=== PATIENT | female | born 1955 | race Caucasian/White ===

== ENCOUNTER → 2018-08-04 | Outpatient (CLI) | payer MEDICARE ==
[2018-08-04 09:30] LABS: Basophils # (auto) 0 uL; Basophils % (auto) 0.5 % (0.0-2.0); Eosinophils # (auto) 0.1 uL; Eosinophils % (auto) 1.9 % (0.0-7.0); Hematocrit 43.9 % (36.0-46.0); Hemoglobin 14.5 g/dL (12.2-16.2); Lymphocytes # (auto) 1.7 uL; Mean Corpuscular Hemoglobin 28.6 pg (28.0-32.0); Mean Corpuscular Hgb Conc. 33.1 g/dL (32.0-36.0); Mean Corpuscular Volume 86.5 fL (80.0-100.0); Monocytes # (auto) 0.5 uL; Neutrophils # (auto) 4.4 uL; Neutrophils % (auto) 64.6 % (37.0-80.0); Platelet Count (auto) 226 10^3/uL (140-450); Red Blood Cells 5.08 10^6/uL (4.0-5.20); Red Cell Distribution Width 13.7 % (11.8-14.3); White Blood Cell 6.8 10^3/uL (4.4-10.8)
[2018-08-04 09:36] LABS: INR 0.82 (0.9-1.15); Partial Thromboplastin Time 29.4 sec (23.78-33.04); Prothrombin Time 8.9 sec (9.27-12.13); Urine Bacteria NONE SEEN /hpf (None Seen); Urine Blood Negative /uL (Negative); Urine Specific Gravity 1.003 (1.001-1.035); Urine WBC <1 /hpf (0 - 5)
[2018-08-04 09:45] LABS: Albumin 3.8 g/dL (3.4-5.0); Calcium 9.3 mg/dL (8.5-10.1); Potassium 4.6 mmol/L (3.5-5.1)
[2018-08-04 09:49] LABS: Amphetamine Screen, Urine NEGATIVE (NEGATIVE); Barbiturate Scree,Urine NEGATIVE (NEGATIVE); Benzodiazephine Screen, Urine NEGATIVE (NEGATIVE); Cannabinoid Screen, Urine NEGATIVE (NEGATIVE); Cocaine Screen, Urine NEGATIVE (NEGATIVE)
[2018-08-04 09:51] LABS: BUN/Creatinine Ratio 9.6; Bilirubin, Total 0.5 mg/dL (0.2-1.0); Total Protein 7.5 g/dL (6.4-8.2)
[2018-08-04 09:52] LABS: Alcohol, Urine < 3.0 mg/dL (0-5); Opiate Scree,Urine NEGATIVE (NEGATIVE); Phencyclidine Screen, Urine NEGATIVE (NEGATIVE)
[2018-08-04 09:53] LABS: Free T4 (Free Thyroxine) 1.23 ng/dL (0.89-1.76)
[2018-08-04 09:54] LABS: Folate (Folic Acid) > 24.00 ng/mL (5.38-24)
== END | disposition home or self-care (01) ==
LOC: LAB 08:37
PROVIDERS: ATTEND Internal Medicine
DX: R60.0 Localized edema (principal); F31.10 Bipolar disorder, current episode manic without psychotic features, unspecified; J43.9 Emphysema, unspecified; R73.9 Hyperglycemia, unspecified; R79.1 Abnormal coagulation profile; E55.9 Vitamin D deficiency, unspecified; E78.5 Hyperlipidemia, unspecified; F11.20 Opioid dependence, uncomplicated
CPT/HCPCS: 36415; 80053; 80061; 80307; 81001; 82306; 82607; 82746; 83036; 83615; 84439; 84443; 85025; 85610; 85730

== ENCOUNTER → 2018-08-06 | Outpatient (CLI) | payer MEDICARE ==
[2018-08-06 10:37] LABS: Basophils # (auto) 0 uL; Basophils % (auto) 0.5 % (0.0-2.0); Eosinophils # (auto) 0.1 uL; Eosinophils % (auto) 1.4 % (0.0-7.0); Hematocrit 42.7 % (36.0-46.0); Hemoglobin 14.4 g/dL (12.2-16.2); Lymphocytes # (auto) 1.5 uL; Lymphocytes % (auto) 20.6 % (10.0-50.0); Mean Corpuscular Hemoglobin 29.2 pg (28.0-32.0); Mean Corpuscular Hgb Conc. 33.8 g/dL (32.0-36.0); Mean Corpuscular Volume 86.3 fL (80.0-100.0); Monocytes # (auto) 0.6 uL; Monocytes % (auto) 8.7 % (0.0-12.0); Neutrophils # (auto) 5.1 uL; Neutrophils % (auto) 68.8 % (37.0-80.0); Nucleated Red Blood Cells % 0.1 %; Platelet Count (auto) 214 10^3/uL (140-450); Red Blood Cells 4.95 10^6/uL (4.0-5.20); White Blood Cell 7.4 10^3/uL (4.4-10.8)
[2018-08-06 13:45] LABS: Albumin 3.9 g/dL (3.4-5.0); BUN/Creatinine Ratio 7.3; Bilirubin, Total 0.4 mg/dL (0.2-1.0); Calcium 9.2 mg/dL (8.5-10.1); Total Protein 7.7 g/dL (6.4-8.2)
[2018-08-06 14:19] LABS: Potassium 4.1 mmol/L (3.5-5.1)
== END | disposition home or self-care (01) ==
LOC: LAB 10:09
PROVIDERS: ATTEND Internal Medicine
DX: C50.112 Malignant neoplasm of central portion of left female breast (principal); Z85.41 Personal history of malignant neoplasm of cervix uteri
CPT/HCPCS: 36415; 80053; 83615; 85025; 86300

== ENCOUNTER → 2018-08-11 | Outpatient (CLI) | payer MEDICARE | END | disposition home or self-care (01) | LOC: LAB 10:25 | PROVIDERS: ATTEND Internal Medicine | DX: C50.112 Malignant neoplasm of central portion of left female breast (principal) | CPT/HCPCS: 36415; 82565; 84520 ==

== ENCOUNTER → 2018-08-13 | Outpatient (CLI) | payer MEDICARE | END | disposition home or self-care (01) | LOC: US 09:22 | PROVIDERS: ATTEND Internal Medicine | DX: C50.312 Malignant neoplasm of lower-inner quadrant of left female breast (principal); Z17.0 Estrogen receptor positive status [ER+]; Z98.890 Other specified postprocedural states | CPT/HCPCS: 10022; 19083; 76642; 76942; 88341 ==

== ENCOUNTER → 2018-08-19 | Outpatient (CLI) | payer MEDICARE, MEDICAID | END | disposition home or self-care (01) | LOC: XYW 10:13 | PROVIDERS: ATTEND Internal Medicine | DX: I34.0 Nonrheumatic mitral (valve) insufficiency (principal); N63.20 Unspecified lump in the left breast, unspecified quadrant | CPT/HCPCS: 93306 ==

== ENCOUNTER 2018-09-23 07:10 | Inpatient (IN) | payer MEDICARE, MEDICAID ==
[2018-09-21 11:08] LABS: Basophils # (auto) 0.1 uL; Basophils % (auto) 0.9 % (0.0-2.0); Eosinophils # (auto) 0.1 uL; Eosinophils % (auto) 2.2 % (0.0-7.0); Hemoglobin 14.6 g/dL (12.2-16.2); Lymphocytes # (auto) 1.8 uL; Lymphocytes % (auto) 32.2 % (10.0-50.0); Mean Corpuscular Hemoglobin 28.4 pg (28.0-32.0); Mean Corpuscular Hgb Conc. 33.1 g/dL (32.0-36.0); Mean Corpuscular Volume 85.8 fL (80.0-100.0); Monocytes # (auto) 0.5 uL; Monocytes % (auto) 8.3 % (0.0-12.0); Neutrophils # (auto) 3.2 uL; Neutrophils % (auto) 56.4 % (37.0-80.0); Platelet Count (auto) 207 10^3/uL (140-450); Red Blood Cells 5.12 10^6/uL (4.0-5.20); Red Cell Distribution Width 14.1 % (11.8-14.3); White Blood Cell 5.7 10^3/uL (4.4-10.8)
[2018-09-21 11:10] LABS: Urine Bacteria NONE SEEN /hpf (None Seen); Urine Blood Negative /uL (Negative); Urine Specific Gravity 1.005 (1.001-1.035); Urine WBC <1 /hpf (0 - 5)
[2018-09-21 11:20] LABS: INR 0.98 (0.9-1.15); Partial Thromboplastin Time 31.3 sec (23.64-32.05)
[2018-09-21 11:47] LABS: Potassium 3.8 mmol/L (3.5-5.1)
[2018-09-21 11:54] LABS: Albumin 3.9 g/dL (3.4-5.0); Bilirubin, Total 0.5 mg/dL (0.2-1.0); Calcium 8.9 mg/dL (8.5-10.1); Total Protein 7.5 g/dL (6.4-8.2)
[~2018-09-23] VITALS: Ht 160 cm; Wt 87.2 kg
[~2018-09-23 07:10] MED LIST: ALBUAER3 IN; ALEN10TA22 PO; ATOR20TA50 PO; SERT-160 PO
[2018-09-23] MEDS ORDERED: ceFAZolin 1GM/50ML 50 ML IV ONE (08:12)
[2018-09-23] MEDS ORDERED: fentaNYL CITRATE 100 MCG/2 ML VL ONE (09:35)
[2018-09-23] MEDS ORDERED: MIDAZOLAM HCL 1MG/1ML-2 ML VIAL ONE (09:35)
[2018-09-23] MEDS ORDERED: PROPOFOL 10 MG/ML 20 ML IV ONE (09:36)
[2018-09-23] MEDS ORDERED: ePHEDrine SULFATE 50 MG/ML AMP IV PRN (10:15)
[2018-09-23] MEDS ORDERED: KETOROLAC TROMETH 30 MG/ML 1ML VIAL IV ONE (10:15)
[2018-09-23] MEDS ORDERED: METOCLOPRAMIDE HCL 5MG/ml INJ 2ml VIAL IV ONE (10:15)
[2018-09-23] MEDS ORDERED: ONDANSETRON HCL 4 MG/2 ML VIAL IV ONE (10:15)
[2018-09-23] MEDS ORDERED: LABETALOL HCL 5 MG/ML 4ML SYRINGE IV PRN (10:15)
[2018-09-23] MEDS ORDERED: LIDOCAINE HCL 2% TOP JELLY 5ML TOP ONE (11:12)
[2018-09-23] MEDS ORDERED: METOCLOPRAMIDE HCL 5MG/ml INJ 2ml VIAL ONE (11:14)
[2018-09-23] MEDS ORDERED: ONDANSETRON HCL 4 MG/2 ML VIAL ONE (11:14)
[2018-09-23] MEDS ORDERED: KETOROLAC TROMETH 30 MG/ML 1ML VIAL ONE (11:17)
[2018-09-23] MEDS: HYDROmorphone HCL 2 MG/ML VL IV PRN ×4 (11:59→23:23)
[2018-09-23] MEDS ORDERED: MORPHINE SULFATE 4 MG/ML SYR/VIAL IV ONE (12:00)
--- NOTE | 2018-09-23 13:00 | NUR ---
SCD's placed to bilateral lower ext.
[2018-09-23] MEDS ORDERED: NICOTINE 21MG/24 HR TOPICAL PATCH TD ONE (13:45)
[2018-09-23] MEDS ORDERED: HYDROcodone-ACET 5/325MG TAB PO PRN (13:45)
[2018-09-23] MEDS: D5W/SOD CHL 0.45%/KCL 20MEQ 1,000 ML IV SCH ×2 (13:55→21:45)
--- NOTE | 2018-09-23 14:45 | NUR ---
MS admit from OR I[facility] SIMON admitted to MS unit after SBAR received. Patient oriented to Lore Turpin RN primary RN, unit, room, bed, and unit policies regarding patient care and visiting hours. Patient encouraged to call if they need something. All questions and concerns addressed, patient verbalized understanding. Note: Patient alert and oriented. Denies any pain at this time. Dressing to chest in place and 4 IKER Drain bulbs to suction. Bed in locked and lowest position, call light in reach, bed alarm on.
[2018-09-23 16:39] VITALS: BP 93/50
[2018-09-23] MEDS: ceFAZolin 1GM/50ML 50 ML IV SCH ×2 (17:00→21:32)
--- NOTE | 2018-09-23 17:30 | NUR ---
AMBULATION Patient ambulated to restroom with RN standby assist. Patient returned to bed with no distress. Bed in low position, call light in reach.
--- NOTE | 2018-09-23 19:45 | NUR ---
assumed care, pt. awake, alert and oriented, dressing on chest dry and intact, with 4 kaya drains, draining with serous sanguinous out put, no c/o pain, no sob.
[2018-09-23] MEDS: ALBUTEROL SULF 2.5 MG/0.5ML(0.5%) NEB SOLN NEB SCH (19:51)
[2018-09-23] MEDS: IPRATROPIUM BROM 0.5 MG/2.5ML INH SOL NEB SCH (19:51)
[2018-09-23 20:57] VITALS: BP 93/50
[2018-09-23 22:00] VITALS: BP 120/55
[2018-09-23 23:22] VITALS: BP 132/68
[2018-09-24] MEDS: D5W/SOD CHL 0.45%/KCL 20MEQ 1,000 ML IV SCH ×3 (04:52→23:56)
[2018-09-24 05:00] VITALS: BP 123/59
[2018-09-24] MEDS: ceFAZolin 1GM/50ML 50 ML IV SCH ×3 (05:50→21:46)
[2018-09-24] MEDS: HYDROmorphone HCL 2 MG/ML VL IV PRN ×2 (05:51→09:51)
[2018-09-24] MEDS: IPRATROPIUM BROM 0.5 MG/2.5ML INH SOL NEB SCH ×3 (06:27→18:52)
[2018-09-24] MEDS: ALBUTEROL SULF 2.5 MG/0.5ML(0.5%) NEB SOLN NEB SCH ×3 (06:27→18:53)
--- NOTE | 2018-09-24 06:27 | NUR ---
Respiratory note: AT BEDSIDE FOR MED NEB TX. PT TOLERATING TX WELL VIA MASK., BS ARE DIMINISHED T/O, HR 85, POX91% ON 2LPM NC. RT NAME AND PAGER ASSIGNMENT WRITTEN ON PTS ROOM BOARD.
[2018-09-24 07:01] LABS: Basophils # (auto) 0 uL; Basophils % (auto) 0.2 % (0.0-2.0); Eosinophils # (auto) 0 uL; Eosinophils % (auto) 0.2 % (0.0-7.0); Hematocrit 37.3 % (36.0-46.0); Hemoglobin 12.5 g/dL (12.2-16.2); Lymphocytes # (auto) 1.6 uL; Lymphocytes % (auto) 17.2 % (10.0-50.0); Mean Corpuscular Hemoglobin 28.9 pg (28.0-32.0); Mean Corpuscular Hgb Conc. 33.5 g/dL (32.0-36.0); Mean Corpuscular Volume 86.3 fL (80.0-100.0); Monocytes # (auto) 0.6 uL; Monocytes % (auto) 6.9 % (0.0-12.0); Neutrophils # (auto) 6.9 uL; Neutrophils % (auto) 75.5 % (37.0-80.0); Platelet Count (auto) 183 10^3/uL (140-450); Red Blood Cells 4.32 10^6/uL (4.0-5.20); Red Cell Distribution Width 14.2 % (11.8-14.3); White Blood Cell 9.1 10^3/uL (4.4-10.8)
--- NOTE | 2018-09-24 07:25 | NUR ---
SHIFT CHANGE After report received from NOC RN patient rounds completed. Patient resting in bed with eyes closed, respirations even and unlabored, no s/s distress of discomfort. Bed in locked and a lowest position, call light in reach. POC board updated.
[2018-09-24 07:28] LABS: BUN/Creatinine Ratio 15.9; Calcium 8.1 mg/dL (8.5-10.1); Potassium 4.1 mmol/L (3.5-5.1)
[2018-09-24 08:59] VITALS: BP 124/72
[2018-09-24] MEDS: SERTRALINE HCL 50 MG TAB PO SCH (09:50)
--- NOTE | 2018-09-24 09:50 | NUR ---
FAMILY AT BEDSIDE. PATIENT REQUEST IV PAIN MEDICATION. EDUCATION PROVIDED ON MEDICATION ORDERS AND PAIN MANAGEMENT. PATIENT VERBALIZED UNDERSTANDING.
[2018-09-24] MEDS: NICOTINE 21MG/24 HR TOPICAL PATCH TD SCH (09:51)
--- NOTE | 2018-09-24 09:55 | NUR ---
EDUCATION Education provide on use of IKER drains with sister at bedside. Per patient Virginie is her sister that lives at home with her and will assist with patient care after discharge.
--- NOTE | 2018-09-24 11:56 | NUR ---
ROUNDS Patient free of pain. No complaints or s/s distress.
[2018-09-24] MEDS ORDERED: HYDROmorphone HCL 2 MG/ML VL IV PRN (12:45)
[2018-09-24 13:00] VITALS: BP 113/60
[2018-09-24 17:00] VITALS: BP 117/65
[2018-09-24] MEDS: ONDANSETRON HCL 4 MG/2 ML VIAL IV PRN (18:23)
--- NOTE | 2018-09-24 19:30 | NUR ---
assumed care, pt. awake, relatives at bedside, no /o pain, no sob.
[2018-09-24] MEDS: traMADol HCL 50 MG TAB PO PRN (19:46)
[2018-09-24 21:38] VITALS: BP 132/72
[2018-09-25] MEDS: traMADol HCL 50 MG TAB PO PRN ×2 (03:23→09:40)
[2018-09-25 05:03] VITALS: BP 132/68
[2018-09-25] MEDS: ceFAZolin 1GM/50ML 50 ML IV SCH ×2 (05:31→13:40)
[2018-09-25 06:41] LABS: Basophils # (auto) 0 uL; Basophils % (auto) 0.1 % (0.0-2.0); Eosinophils # (auto) 0 uL; Eosinophils % (auto) 0.3 % (0.0-7.0); Hematocrit 35.3 % (36.0-46.0); Hemoglobin 11.7 g/dL (12.2-16.2); Lymphocytes # (auto) 1.2 uL; Lymphocytes % (auto) 14.5 % (10.0-50.0); Mean Corpuscular Hemoglobin 28.7 pg (28.0-32.0); Mean Corpuscular Hgb Conc. 33.3 g/dL (32.0-36.0); Mean Corpuscular Volume 86.2 fL (80.0-100.0); Monocytes # (auto) 0.6 uL; Monocytes % (auto) 7.8 % (0.0-12.0); Neutrophils # (auto) 6.2 uL; Neutrophils % (auto) 77.3 % (37.0-80.0); Platelet Count (auto) 164 10^3/uL (140-450); Red Blood Cells 4.09 10^6/uL (4.0-5.20); Red Cell Distribution Width 14.3 % (11.8-14.3); White Blood Cell 8.1 10^3/uL (4.4-10.8)
[2018-09-25] MEDS: ALBUTEROL SULF 2.5 MG/0.5ML(0.5%) NEB SOLN NEB SCH ×2 (07:17→11:09)
[2018-09-25] MEDS: IPRATROPIUM BROM 0.5 MG/2.5ML INH SOL NEB SCH ×2 (07:17→11:09)
--- NOTE | 2018-09-25 07:17 | NUR ---
RT NOTE: PT REFUSED TX AT THIS TIME. NO SIGNS OF RESPIRATORY DISTRESS. LUNG SOUNDS CLEAR DIMINISHED T/O. ON 3L NC SPO2 94 HR 71 RR 16. PT AWARE THAT I WILL RETURN FOR NEXT SCHEDULED TX. WILL CONTINUE TO MONITOR.
--- NOTE | 2018-09-25 07:42 | NUR ---
PATIENT ROUNDS PATIENT SITTING IN BED NO DISTRESS NOTED, BED IN LOWEST POSITION, SIDE RAILS UP X2, CALL LIGHT WITHIN REACH. ALL QUESTIONS AND CONCERNS ADDRESSED. PATIENT ENCOURAGED TO CALL IF THEY NEED ANYTHING. WILL CONTINUE TO MONITOR AND INITIATE POC. STUDENT DESSERT CUP MACHINE FEEDER JULY ASSISTING WITH POC.
[2018-09-25 09:00] VITALS: BP 122/62
[2018-09-25] MEDS: SERTRALINE HCL 50 MG TAB PO SCH ×2 (09:39→10:00)
[2018-09-25] MEDS: NICOTINE 21MG/24 HR TOPICAL PATCH TD SCH (09:39)
--- NOTE | 2018-09-25 11:09 | NUR ---
RT NOTE: PT REFUSED BREATHING TX AT THIS TIME. STATING THAT YESTERDAYS TXS MADE HER NAUSEOUS. NO SIGNS OF RESPIRATORY DISTRESS NOTED. LUNG SOUNDS CLEAR/DIMINISHED T/O. ON 3LNC SPO2 97 HR 80 RR 16. WILL CONTINUE TO MONITOR.
[2018-09-25 13:00] VITALS: BP 129/59
--- NOTE | 2018-09-25 14:00 | NUR ---
re-assessment Per consult arrange home health for care of post op drains. Patient has been given a list of medicare providers. Per patient she has no preference on who provides service. Addendum: 09/25/18 at 1637 by Shae Dowd Amended: Links added.
[2018-09-25] MEDS: ONDANSETRON HCL 4 MG/2 ML VIAL IV PRN (14:42)
--- NOTE | 2018-09-25 14:42 | NUR ---
Faxed paperwork to [facility] for followup. The will respond within 24 to 48 hours. Spoke with Magdaleno.
--- NOTE | 2018-09-25 15:20 | NUR ---
IV removal IV DC'd with clean sterile technique, catheter fully intact. Pressure dressing applied to site. Patient tolerated well. NOTE:
== END 2018-09-25 15:31 | disposition home health service (06) | DRG 583 ==
LOC: SUR 07:10 → WEST WING 15:06
PROVIDERS: ADMIT Surgery; ATTEND Internal Medicine
PROC: 0HBT0ZZ Excision of Right Breast, Open Approach (ICD-10-PCS; 2018-09-23)
PROC: 07T60ZZ Resection of Left Axillary Lymphatic, Open Approach (ICD-10-PCS; principal; 2018-09-23 09:40)
PROC: 0HTU0ZZ Resection of Left Breast, Open Approach (ICD-10-PCS; 2018-09-23 09:40)
DX: C50.912 Malignant neoplasm of unspecified site of left female breast (principal); J44.9 Chronic obstructive pulmonary disease, unspecified; E78.5 Hyperlipidemia, unspecified; F32.9 Major depressive disorder, single episode, unspecified; E66.9 Obesity, unspecified; M81.0 Age-related osteoporosis without current pathological fracture; Z68.34 Body mass index [BMI] 34.0-34.9, adult; F17.200 Nicotine dependence, unspecified, uncomplicated
CPT/HCPCS: 36415; 80048; 80053; 81001; 85025; 85610; 85730; 86850; 86900; 86901; 94640; G0378; J0690; J1885; J2250; J2405; J2704

== ENCOUNTER → 2018-10-16 | Outpatient (CLI) | payer MEDICARE, MEDICAID | END | disposition home or self-care (01) | LOC: LAB 13:12 | PROVIDERS: ATTEND Internal Medicine | DX: C50.112 Malignant neoplasm of central portion of left female breast (principal) | CPT/HCPCS: 36415; 83615; 86300 ==

== ENCOUNTER → 2018-12-17 | Outpatient (CLI) | payer MEDICARE, MEDICAID ==
[2018-12-17 14:07] LABS: Hematocrit 37.5 % (36.0-46.0); Hemoglobin 12.4 g/dL (12.2-16.2); Platelet Count (auto) 194 10^3/uL (140-450); Red Blood Cells 4.42 10^6/uL (4.0-5.20); Red Cell Distribution Width 14.2 % (11.8-14.3)
[2018-12-17 14:24] LABS: Basophils % (manual) 0 (0.0-2.0); Blast Cells 0; Promyelocytes % 0; Reactive Lymphocytes 0
[2018-12-17 14:36] LABS: Albumin 3.7 g/dL (3.4-5.0); BUN/Creatinine Ratio 10.3; Calcium 8.6 mg/dL (8.5-10.1); Potassium 3.7 mmol/L (3.5-5.1)
[2018-12-17 14:42] LABS: Bilirubin, Total 0.2 mg/dL (0.2-1.0); Total Protein 7.3 g/dL (6.4-8.2)
[2018-12-17 15:37] LABS: Band Neutrophils % (manual) 16; Eosinophils % (manual) 1 (0-7); Lymphocytes % (manual) 22 (10.0-50.0); Metamyelocytes % 1; Monocytes % (manual) 2 (0-12); Myelocytes % 1
== END | disposition home or self-care (01) ==
LOC: LAB 13:32
PROVIDERS: ATTEND Internal Medicine
DX: C50.112 Malignant neoplasm of central portion of left female breast (principal)
CPT/HCPCS: 36415; 80053; 83615; 85007; 85027

== ENCOUNTER → 2018-12-28 | Outpatient (CLI) | payer MEDICARE, MEDICAID ==
[2018-12-28 12:25] LABS: Basophils # (auto) 0.1 uL; Basophils % (auto) 0.8 % (0.0-2.0); Eosinophils # (auto) 0 uL; Eosinophils % (auto) 0.4 % (0.0-7.0); Hematocrit 35.7 % (36.0-46.0); Lymphocytes # (auto) 0.8 uL; Lymphocytes % (auto) 9.4 % (10.0-50.0); Mean Corpuscular Hemoglobin 28.7 pg (28.0-32.0); Mean Corpuscular Hgb Conc. 33.6 g/dL (32.0-36.0); Mean Corpuscular Volume 85.4 fL (80.0-100.0); Monocytes # (auto) 0.3 uL; Monocytes % (auto) 4.1 % (0.0-12.0); Neutrophils # (auto) 7.2 uL; Neutrophils % (auto) 85.3 % (37.0-80.0); Platelet Count (auto) 395 10^3/uL (140-450); Red Blood Cells 4.18 10^6/uL (4.0-5.20); Red Cell Distribution Width 14.4 % (11.8-14.3); White Blood Cell 8.5 10^3/uL (4.4-10.8)
[2018-12-28 13:06] LABS: Albumin 3.4 g/dL (3.4-5.0); Calcium 9.6 mg/dL (8.5-10.1); Potassium 4.7 mmol/L (3.5-5.1)
[2018-12-28 13:10] LABS: BUN/Creatinine Ratio 11.3; Bilirubin, Total 0.4 mg/dL (0.2-1.0); Total Protein 7.6 g/dL (6.4-8.2)
== END | disposition home or self-care (01) ==
LOC: LAB 11:16
PROVIDERS: ATTEND Internal Medicine
DX: C50.112 Malignant neoplasm of central portion of left female breast (principal)
CPT/HCPCS: 36415; 80053; 83615; 85025

== ENCOUNTER → 2019-01-07 | Outpatient (CLI) | payer MEDICARE, MEDICAID ==
[2019-01-07 12:33] LABS: Hematocrit 33.7 % (36.0-46.0); Hemoglobin 11.1 g/dL (12.2-16.2); Mean Corpuscular Hemoglobin 27.9 pg (28.0-32.0); Mean Corpuscular Hgb Conc. 32.9 g/dL (32.0-36.0); Mean Corpuscular Volume 84.7 fL (80.0-100.0); Platelet Count (auto) 241 10^3/uL (140-450); Red Blood Cells 3.98 10^6/uL (4.0-5.20); Red Cell Distribution Width 15.3 % (11.8-14.3); White Blood Cell 16.8 10^3/uL (4.4-10.8)
[2019-01-07 12:44] LABS: Basophils % (manual) 0 (0.0-2.0); Blast Cells 0; Eosinophils % (manual) 0 (0-7); Myelocytes % 0; Promyelocytes % 0; Reactive Lymphocytes 0
[2019-01-07 15:31] LABS: Band Neutrophils % (manual) 2; Lymphocytes % (manual) 9 (10.0-50.0); Monocytes % (manual) 6 (0-12)
[2019-01-07 15:32] LABS: Metamyelocytes % 2
== END | disposition home or self-care (01) ==
LOC: LAB 12:21
PROVIDERS: ATTEND Internal Medicine
DX: C50.112 Malignant neoplasm of central portion of left female breast (principal)
CPT/HCPCS: 36415; 85007; 85027

== ENCOUNTER → 2019-01-18 | Outpatient (CLI) | payer MEDICARE, MEDICAID ==
[2019-01-18 12:05] LABS: Basophils # (auto) 0.1 uL; Eosinophils # (auto) 0 uL; Eosinophils % (auto) 0.6 % (0.0-7.0); Hematocrit 32.5 % (36.0-46.0); Hemoglobin 11.1 g/dL (12.2-16.2); Lymphocytes # (auto) 0.6 uL; Lymphocytes % (auto) 7.8 % (10.0-50.0); Mean Corpuscular Hemoglobin 28.3 pg (28.0-32.0); Mean Corpuscular Hgb Conc. 34.1 g/dL (32.0-36.0); Monocytes # (auto) 0.2 uL; Monocytes % (auto) 2.4 % (0.0-12.0); Neutrophils % (auto) 88.2 % (37.0-80.0); Platelet Count (auto) 392 10^3/uL (140-450); Red Blood Cells 3.91 10^6/uL (4.0-5.20); Red Cell Distribution Width 15.2 % (11.8-14.3)
[2019-01-18 12:28] LABS: Albumin 3.2 g/dL (3.4-5.0); Calcium 9.3 mg/dL (8.5-10.1)
[2019-01-18 12:31] LABS: BUN/Creatinine Ratio 15.7; Bilirubin, Total 0.3 mg/dL (0.2-1.0); Total Protein 7.3 g/dL (6.4-8.2)
== END | disposition home or self-care (01) ==
LOC: LAB 11:15
PROVIDERS: ATTEND Internal Medicine
DX: C50.112 Malignant neoplasm of central portion of left female breast (principal)
CPT/HCPCS: 36415; 80053; 83615; 85025

== ENCOUNTER → 2019-02-15 | Outpatient (CLI) | payer MEDICARE, MEDICAID ==
[2019-02-15 11:19] LABS: Basophils # (auto) 0.1 uL; Basophils % (auto) 0.8 % (0.0-2.0); Eosinophils # (auto) 0.1 uL; Eosinophils % (auto) 1.1 % (0.0-7.0); Hematocrit 37.6 % (36.0-46.0); Hemoglobin 12.2 g/dL (12.2-16.2); Lymphocytes # (auto) 0.5 uL; Lymphocytes % (auto) 7.4 % (10.0-50.0); Mean Corpuscular Hemoglobin 28.3 pg (28.0-32.0); Mean Corpuscular Hgb Conc. 32.3 g/dL (32.0-36.0); Mean Corpuscular Volume 87.6 fL (80.0-100.0); Monocytes # (auto) 0.1 uL; Monocytes % (auto) 1.8 % (0.0-12.0); Neutrophils # (auto) 6.1 uL; Neutrophils % (auto) 88.9 % (37.0-80.0); Nucleated Red Blood Cells % 0.1 %; Platelet Count (auto) 281 10^3/uL (140-450); Red Cell Distribution Width 17.6 % (11.8-14.3); White Blood Cell 6.8 10^3/uL (4.4-10.8)
[2019-02-15 11:36] LABS: Albumin 3.5 g/dL (3.4-5.0); Potassium 3.7 mmol/L (3.5-5.1)
[2019-02-15 11:40] LABS: BUN/Creatinine Ratio 8.5; Bilirubin, Total 0.4 mg/dL (0.2-1.0)
== END | disposition home or self-care (01) ==
LOC: LAB 10:17
PROVIDERS: ATTEND Internal Medicine Hematology & Oncology
DX: C50.112 Malignant neoplasm of central portion of left female breast (principal); N63.0 Unspecified lump in unspecified breast
CPT/HCPCS: 36415; 80053; 83615; 85025

== ENCOUNTER → 2019-05-04 | Outpatient (CLI) | payer MEDICARE, MEDICAID ==
[2019-05-04 14:01] LABS: Basophils # (auto) 0 uL; Basophils % (auto) 0.6 % (0.0-2.0); Eosinophils # (auto) 0.1 uL; Eosinophils % (auto) 2.5 % (0.0-7.0); Hematocrit 41.9 % (36.0-46.0); Hemoglobin 13.7 g/dL (12.2-16.2); Lymphocytes # (auto) 1.8 uL; Lymphocytes % (auto) 33.7 % (10.0-50.0); Mean Corpuscular Hemoglobin 27.4 pg (28.0-32.0); Mean Corpuscular Hgb Conc. 32.7 g/dL (32.0-36.0); Mean Corpuscular Volume 83.9 fL (80.0-100.0); Monocytes # (auto) 0.4 uL; Monocytes % (auto) 7.6 % (0.0-12.0); Neutrophils # (auto) 2.9 uL; Neutrophils % (auto) 55.6 % (37.0-80.0); Platelet Count (auto) 205 10^3/uL (140-450); Red Blood Cells 4.99 10^6/uL (4.0-5.20); Red Cell Distribution Width 14.6 % (11.8-14.3); White Blood Cell 5.3 10^3/uL (4.4-10.8)
[2019-05-04 14:30] LABS: Calcium 9.6 mg/dL (8.5-10.1); Potassium 4.9 mmol/L (3.5-5.1)
[2019-05-04 14:33] LABS: Bilirubin, Total 0.3 mg/dL (0.2-1.0); Total Protein 7.4 g/dL (6.4-8.2)
== END | disposition home or self-care (01) ==
LOC: LAB 13:11
PROVIDERS: ATTEND Internal Medicine Hematology & Oncology
DX: N63.0 Unspecified lump in unspecified breast (principal); J44.9 Chronic obstructive pulmonary disease, unspecified; E66.9 Obesity, unspecified; Z85.3 Personal history of malignant neoplasm of breast
CPT/HCPCS: 36415; 80053; 85025; 86300

== ENCOUNTER → 2019-05-24 | Outpatient (CLI) | payer MEDICARE ==
[2019-05-24 11:25] LABS: Cholesterol 166 mg/dL (< 200); HDL Cholesterol 64 mg/dL (40-59); LDL Cholesterol 86 mg/dL (< 100); Triglycerides 120 mg/dL (< 150)
== END | disposition home or self-care (01) ==
LOC: LAB 10:29
PROVIDERS: ATTEND Internal Medicine
DX: J43.9 Emphysema, unspecified (principal); C50.912 Malignant neoplasm of unspecified site of left female breast; Z79.899 Other long term (current) drug therapy
CPT/HCPCS: 36415; 80061; 83036; 84443

== ENCOUNTER → 2019-06-02 | Outpatient (CLI) | payer MEDICARE | END | disposition home or self-care (01) | LOC: LAB 13:11 | PROVIDERS: ATTEND Internal Medicine | DX: C50.912 Malignant neoplasm of unspecified site of left female breast (principal); J43.9 Emphysema, unspecified | CPT/HCPCS: 82274 ==

== ENCOUNTER → 2019-09-23 | Outpatient (CLI) | payer MEDICARE ==
[2019-09-23 11:44] LABS: Basophils # (auto) 0 10 ^3/uL (0-0.2); Basophils % (auto) 0.8 % (0.0-2.0); Eosinophils # (auto) 0.1 10 ^3/uL (0-0.8); Eosinophils % (auto) 2.7 % (0.0-7.0); Hematocrit 34.7 % (36.0-46.0); Hemoglobin 11.5 g/dL (12.2-16.2); Lymphocytes # (auto) 0.8 10 ^3/uL (0.4-5.4); Lymphocytes % (auto) 18.8 % (10.0-50.0); Mean Corpuscular Hemoglobin 27.9 pg (28.0-32.0); Mean Corpuscular Hgb Conc. 33.2 g/dL (32.0-36.0); Mean Corpuscular Volume 83.9 fL (80.0-100.0); Monocytes # (auto) 0.4 10 ^3/uL (0-1.3); Monocytes % (auto) 8.5 % (0.0-12.0); Neutrophils % (auto) 69.2 % (37.0-80.0); Nucleated Red Blood Cells % 0.2 %; Platelet Count (auto) 214 10^3/uL (140-450); Red Blood Cells 4.14 10^6/uL (4.0-5.20); Red Cell Distribution Width 14.3 % (11.8-14.3); White Blood Cell 4.3 10^3/uL (4.4-10.8)
[2019-09-23 12:37] LABS: % Iron Saturation 12.8 % (15-50)
[2019-09-23 12:40] LABS: Albumin 3.5 g/dL (3.4-5.0); Calcium 8.7 mg/dL (8.5-10.1); Potassium 3.3 mmol/L (3.5-5.1)
[2019-09-23 12:43] LABS: BUN/Creatinine Ratio 12.8; Bilirubin, Total 0.3 mg/dL (0.2-1.0); CRP High Sensitivity 0.34 mg/dL (< 0.3); Total Protein 7.2 g/dL (6.4-8.2)
[2019-09-23 12:57] LABS: Ferritin 33.4 ng/mL (10-322)
[2019-09-23 12:58] LABS: Free T4 (Free Thyroxine) 1.56 ng/dL (0.89-1.76)
[2019-09-23 13:00] LABS: Folate (Folic Acid) > 24.00 ng/mL (5.38-24)
== END | disposition home or self-care (01) ==
LOC: LAB 11:29
PROVIDERS: ATTEND Internal Medicine
DX: R73.03 Prediabetes (principal); E03.9 Hypothyroidism, unspecified; D50.9 Iron deficiency anemia, unspecified; Z79.899 Other long term (current) drug therapy
CPT/HCPCS: 36415; 80053; 82085; 82550; 82607; 82728; 82746; 83036; 83540; 83550; 84439; 84443; 85025; 85652; 86141; 86200; 86431

== ENCOUNTER 2019-10-27 13:00 | Day surgery (SDC) | payer MEDICARE, MEDICAID ==
[2019-10-25 11:55] LABS: Basophils # (auto) 0 10 ^3/uL (0-0.2); Basophils % (auto) 0.6 % (0.0-2.0); Eosinophils # (auto) 0.1 10 ^3/uL (0-0.8); Eosinophils % (auto) 2.5 % (0.0-7.0); Hematocrit 37.2 % (36.0-46.0); Hemoglobin 12.3 g/dL (12.2-16.2); Lymphocytes # (auto) 0.9 10 ^3/uL (0.4-5.4); Lymphocytes % (auto) 21.4 % (10.0-50.0); Mean Corpuscular Hemoglobin 27.2 pg (28.0-32.0); Mean Corpuscular Hgb Conc. 33.1 g/dL (32.0-36.0); Mean Corpuscular Volume 82.3 fL (80.0-100.0); Monocytes # (auto) 0.4 10 ^3/uL (0-1.3); Monocytes % (auto) 9.1 % (0.0-12.0); Neutrophils # (auto) 2.7 10 ^3/uL (1.6-8.6); Neutrophils % (auto) 66.4 % (37.0-80.0); Nucleated Red Blood Cells % 0.1 %; Platelet Count (auto) 206 10^3/uL (140-450); Red Blood Cells 4.52 10^6/uL (4.0-5.20); Red Cell Distribution Width 14.1 % (11.8-14.3); White Blood Cell 4.1 10^3/uL (4.4-10.8)
[2019-10-25 12:16] LABS: INR 0.97 (0.9-1.15); Partial Thromboplastin Time 30.5 sec (23.64-32.05)
[~2019-10-27] VITALS: Ht 160 cm; Wt 86.6 kg
[~2019-10-27 13:00] MED LIST changes: -ALEN10TA22 PO; +ANAS1TAB7 PO; +LEVO50TA7 PO; +PANT40TA2 PO
[2019-10-27] MEDS ORDERED: SODIUM CHLORIDE LOCK 10 ML ONE (13:35)
[2019-10-27] MEDS ORDERED: diphenhdrAMINE HCL 50 MG/1 ML VL ONE (13:36)
[2019-10-27] MEDS: MIDAZOLAM HCL 5 MG/ML-1ML VIAL ONE ×4 (14:30→14:34)
[2019-10-27] MEDS: fentaNYL CITRATE 100 MCG/2 ML VL ONE ×2 (14:30→14:32)
[2019-10-27 15:25] VITALS: BP 139/81
== END 2019-10-27 15:31 | disposition home or self-care (01) ==
LOC: GI 13:00
PROVIDERS: ATTEND Internal Medicine Gastroenterology
DX: R19.5 Other fecal abnormalities (principal); D12.4 Benign neoplasm of descending colon; D12.7 Benign neoplasm of rectosigmoid junction; K64.8 Other hemorrhoids; J44.9 Chronic obstructive pulmonary disease, unspecified; Z88.8 Allergy status to other drugs, medicaments and biological substances; Z90.10 Acquired absence of unspecified breast and nipple; Z98.890 Other specified postprocedural states; Z79.899 Other long term (current) drug therapy; Z11.59 Encounter for screening for other viral diseases
CPT/HCPCS: 36415; 45380; 45385; 85025; 85610; 85730; J1200; J2250; J3010; J7030; U0003; 99153; G0500

== ENCOUNTER → 2020-01-03 | Outpatient (CLI) | payer MEDICARE ==
[2020-01-03 15:00] LABS: Eosinophils # (auto) 0.1 10 ^3/uL (0-0.8); Hemoglobin 12.4 g/dL (12.2-16.2); Lymphocytes # (auto) 1.2 10 ^3/uL (0.4-5.4); Monocytes # (auto) 0.4 10 ^3/uL (0-1.3); Neutrophils # (auto) 3.2 10 ^3/uL (1.6-8.6); Neutrophils % (auto) 64.1 % (37.0-80.0); Red Cell Distribution Width 16.3 % (11.8-14.3)
[2020-01-03 15:02] LABS: Basophils # (auto) 0 10 ^3/uL (0-0.2); Basophils % (auto) 0.9 % (0.0-2.0); Eosinophils % (auto) 2.4 % (0.0-7.0); Hematocrit 37.7 % (36.0-46.0); Mean Corpuscular Volume 81.8 fL (80.0-100.0); Monocytes % (auto) 8.6 % (0.0-12.0); Platelet Count (auto) 203 10^3/uL (140-450); Red Blood Cells 4.61 10^6/uL (4.0-5.20); White Blood Cell 4.9 10^3/uL (4.4-10.8)
[2020-01-03 15:20] LABS: Albumin 3.8 g/dL (3.4-5.0); Calcium 9.3 mg/dL (8.5-10.1); Potassium 3.7 mmol/L (3.5-5.1)
[2020-01-03 15:24] LABS: BUN/Creatinine Ratio 11.5; Bilirubin, Total 0.5 mg/dL (0.2-1.0); Total Protein 7.3 g/dL (6.4-8.2)
[2020-01-03 15:40] LABS: Urine Bacteria FEW /hpf (None Seen); Urine Blood Negative /uL (Negative); Urine WBC 1 /hpf (0 - 5)
== END | disposition home or self-care (01) ==
LOC: LAB 14:29
PROVIDERS: ATTEND Internal Medicine
DX: C50.912 Malignant neoplasm of unspecified site of left female breast (principal); I10 Essential (primary) hypertension; R73.03 Prediabetes
CPT/HCPCS: 36415; 80053; 81001; 82043; 83036; 83615; 85025; 86300

== ENCOUNTER → 2020-01-11 | Outpatient (CLI) | payer MEDICARE, MEDICAID ==
[2020-01-11 15:52] LABS: CRP High Sensitivity 0.31 mg/dL (< 0.3)
== END | disposition home or self-care (01) ==
LOC: LAB 15:08
PROVIDERS: ATTEND Internal Medicine
DX: D12.6 Benign neoplasm of colon, unspecified (principal); C50.912 Malignant neoplasm of unspecified site of left female breast; I25.10 Atherosclerotic heart disease of native coronary artery without angina pectoris
CPT/HCPCS: 36415; 82378; 82550; 85652; 86141; 86200; 86431

== ENCOUNTER → 2020-01-14 | Day surgery (SDC) | payer MEDICARE, MEDICAID ==
[2020-01-10 09:50] LABS: Basophils # (auto) 0 10 ^3/uL (0-0.2); Basophils % (auto) 0.9 % (0.0-2.0); Eosinophils # (auto) 0.1 10 ^3/uL (0-0.8); Eosinophils % (auto) 3.2 % (0.0-7.0); Hematocrit 38.3 % (36.0-46.0); Hemoglobin 12.7 g/dL (12.2-16.2); Lymphocytes # (auto) 0.9 10 ^3/uL (0.4-5.4); Lymphocytes % (auto) 19.2 % (10.0-50.0); Mean Corpuscular Hgb Conc. 33.1 g/dL (32.0-36.0); Mean Corpuscular Volume 81.5 fL (80.0-100.0); Monocytes # (auto) 0.4 10 ^3/uL (0-1.3); Neutrophils # (auto) 3.1 10 ^3/uL (1.6-8.6); Neutrophils % (auto) 67.7 % (37.0-80.0); Nucleated Red Blood Cells % 0.1 %; Platelet Count (auto) 201 10^3/uL (140-450); Red Cell Distribution Width 16.6 % (11.8-14.3); White Blood Cell 4.5 10^3/uL (4.4-10.8)
[2020-01-10 10:00] LABS: INR 1.03 (0.9-1.15); Partial Thromboplastin Time 31.3 sec (23.0-31.2)
[~2020-01-14] VITALS: Ht 160 cm; Wt 87.5 kg
[~2020-01-14] MED LIST changes: +SODIUM CHLORIDE LOCK 10 ML ONE; +diphenhdrAMINE HCL 50 MG/1 ML VL ONE
[2020-01-14] MEDS: MIDAZOLAM HCL 5 MG/ML-1ML VIAL ONE ×3 (11:42→11:59)
[2020-01-14] MEDS: fentaNYL CITRATE 100 MCG/2 ML VL ONE ×2 (11:42→11:45)
[2020-01-14 12:50] VITALS: BP 152/64
== END | disposition home or self-care (01) ==
LOC: GI 10:31
PROVIDERS: ATTEND Internal Medicine Gastroenterology
DX: Z12.11 Encounter for screening for malignant neoplasm of colon (principal); D12.5 Benign neoplasm of sigmoid colon; D12.7 Benign neoplasm of rectosigmoid junction; J44.9 Chronic obstructive pulmonary disease, unspecified; E66.9 Obesity, unspecified; F41.9 Anxiety disorder, unspecified; Z90.10 Acquired absence of unspecified breast and nipple; Z09 Encounter for follow-up examination after completed treatment for conditions other than malignant neoplasm; Z68.34 Body mass index [BMI] 34.0-34.9, adult; Z85.41 Personal history of malignant neoplasm of cervix uteri; Z87.891 Personal history of nicotine dependence; Z85.3 Personal history of malignant neoplasm of breast; Z98.890 Other specified postprocedural states; Z79.899 Other long term (current) drug therapy; Z20.828 Contact with and (suspected) exposure to other viral communicable diseases
CPT/HCPCS: 36415; 45380; 45385; 85025; 85610; 85730; 88305; J2250; J3010; J7030; U0003; 99152; 99153; G0500

== ENCOUNTER → 2020-02-08 | Outpatient (CLI) | payer MEDICARE, MEDICAID ==
[~2020-02-08] MED LIST changes: -SODIUM CHLORIDE LOCK 10 ML ONE; -diphenhdrAMINE HCL 50 MG/1 ML VL ONE
[2020-02-08 15:17] LABS: Basophils # (auto) 0 10 ^3/uL (0-0.2); Basophils % (auto) 0.5 % (0.0-2.0); Eosinophils # (auto) 0.2 10 ^3/uL (0-0.8); Hemoglobin 12.1 g/dL (12.2-16.2); Lymphocytes # (auto) 1.3 10 ^3/uL (0.4-5.4); Lymphocytes % (auto) 23.3 % (10.0-50.0); Mean Corpuscular Hemoglobin 27.2 pg (28.0-32.0); Mean Corpuscular Hgb Conc. 32.8 g/dL (32.0-36.0); Mean Corpuscular Volume 83.1 fL (80.0-100.0); Monocytes # (auto) 0.5 10 ^3/uL (0-1.3); Monocytes % (auto) 8.8 % (0.0-12.0); Neutrophils # (auto) 3.5 10 ^3/uL (1.6-8.6); Neutrophils % (auto) 64.4 % (37.0-80.0); Platelet Count (auto) 215 10^3/uL (140-450); Red Blood Cells 4.45 10^6/uL (4.0-5.20); Red Cell Distribution Width 16.2 % (11.8-14.3); White Blood Cell 5.5 10^3/uL (4.4-10.8)
[2020-02-08 15:35] LABS: Potassium 3.5 mmol/L (3.5-5.1)
[2020-02-08 15:41] LABS: Albumin 3.9 g/dL (3.4-5.0); BUN/Creatinine Ratio 10.8; Bilirubin, Total 0.4 mg/dL (0.2-1.0); Calcium 8.7 mg/dL (8.5-10.1); Total Protein 7.2 g/dL (6.4-8.2)
== END | disposition home or self-care (01) ==
LOC: LAB 14:48
PROVIDERS: ATTEND Internal Medicine
DX: C18.7 Malignant neoplasm of sigmoid colon (principal); C50.912 Malignant neoplasm of unspecified site of left female breast
CPT/HCPCS: 36415; 80053; 83615; 85025

== ENCOUNTER → 2020-03-28 | Outpatient (CLI) | payer MEDICARE, MEDICAID ==
[2020-03-28 11:28] LABS: Basophils # (auto) 0 10 ^3/uL (0-0.2); Basophils % (auto) 0.7 % (0.0-2.0); Eosinophils # (auto) 0.1 10 ^3/uL (0-0.8); Eosinophils % (auto) 2.5 % (0.0-7.0); Hematocrit 36.8 % (36.0-46.0); Lymphocytes % (auto) 18.5 % (10.0-50.0); Mean Corpuscular Hemoglobin 27.6 pg (28.0-32.0); Mean Corpuscular Hgb Conc. 32.7 g/dL (32.0-36.0); Mean Corpuscular Volume 84.4 fL (80.0-100.0); Monocytes # (auto) 0.5 10 ^3/uL (0-1.3); Monocytes % (auto) 9.1 % (0.0-12.0); Neutrophils # (auto) 3.8 10 ^3/uL (1.6-8.6); Neutrophils % (auto) 69.2 % (37.0-80.0); Platelet Count (auto) 222 10^3/uL (140-450); Red Blood Cells 4.36 10^6/uL (4.0-5.20); Red Cell Distribution Width 15.1 % (11.8-14.3); White Blood Cell 5.4 10^3/uL (4.4-10.8)
[2020-03-28 11:43] LABS: Albumin 3.6 g/dL (3.4-5.0); Calcium 8.9 mg/dL (8.5-10.1); Potassium 3.9 mmol/L (3.5-5.1)
[2020-03-28 11:46] LABS: BUN/Creatinine Ratio 13.4; Bilirubin, Total 0.3 mg/dL (0.2-1.0); Total Protein 7.3 g/dL (6.4-8.2)
== END | disposition home or self-care (01) ==
LOC: LAB 11:07
PROVIDERS: ATTEND Internal Medicine
DX: C18.7 Malignant neoplasm of sigmoid colon (principal); C50.912 Malignant neoplasm of unspecified site of left female breast
CPT/HCPCS: 36415; 80053; 82378; 83615; 85025; 86300

== ENCOUNTER → 2020-04-28 | Outpatient (CLI) | payer MEDICARE, MEDICAID ==
[2020-04-28 12:39] LABS: Basophils # (auto) 0 10 ^3/uL (0-0.2); Basophils % (auto) 0.4 % (0.0-2.0); Eosinophils # (auto) 0.1 10 ^3/uL (0-0.8); Eosinophils % (auto) 2.4 % (0.0-7.0); Hematocrit 38.3 % (36.0-46.0); Hemoglobin 12.9 g/dL (12.2-16.2); Lymphocytes # (auto) 1.1 10 ^3/uL (0.4-5.4); Lymphocytes % (auto) 23.5 % (10.0-50.0); Mean Corpuscular Hemoglobin 28.3 pg (28.0-32.0); Mean Corpuscular Hgb Conc. 33.8 g/dL (32.0-36.0); Mean Corpuscular Volume 83.7 fL (80.0-100.0); Monocytes # (auto) 0.4 10 ^3/uL (0-1.3); Monocytes % (auto) 7.9 % (0.0-12.0); Neutrophils # (auto) 3.1 10 ^3/uL (1.6-8.6); Neutrophils % (auto) 65.8 % (37.0-80.0); Nucleated Red Blood Cells % 0.2 %; Platelet Count (auto) 214 10^3/uL (140-450); Red Blood Cells 4.58 10^6/uL (4.0-5.20); Red Cell Distribution Width 15.3 % (11.8-14.3); White Blood Cell 4.7 10^3/uL (4.4-10.8)
[2020-04-28 12:56] LABS: Albumin 3.8 g/dL (3.4-5.0); Potassium 3.8 mmol/L (3.5-5.1)
[2020-04-28 13:01] LABS: Bilirubin, Total 0.3 mg/dL (0.2-1.0); Total Protein 7.5 g/dL (6.4-8.2)
== END | disposition home or self-care (01) ==
LOC: LAB 11:41
PROVIDERS: ATTEND Internal Medicine
DX: C18.7 Malignant neoplasm of sigmoid colon (principal); C50.912 Malignant neoplasm of unspecified site of left female breast
CPT/HCPCS: 36415; 80053; 83615; 85025; 86300

== ENCOUNTER → 2020-06-08 | Outpatient (CLI) | payer MEDICARE, MEDICAID ==
[2020-06-08 15:46] LABS: Urine Bacteria FEW /hpf (None Seen); Urine Blood Negative /uL (Negative); Urine Mucus FEW (None Seen); Urine Specific Gravity 1.018 (1.001-1.035); Urine WBC 40 /hpf (0 - 5)
== END | disposition home or self-care (01) ==
LOC: LAB 15:24
PROVIDERS: ATTEND Internal Medicine
DX: E11.22 Type 2 diabetes mellitus with diabetic chronic kidney disease (principal); N18.9 Chronic kidney disease, unspecified
CPT/HCPCS: 81001; 82043

== ENCOUNTER → 2020-08-14 | Outpatient (CLI) | payer MEDICARE, MEDICAID ==
[2020-08-14 15:39] LABS: Basophils # (auto) 0 10 ^3/uL (0-0.2); Basophils % (auto) 0.5 % (0.0-2.0); Eosinophils # (auto) 0.1 10 ^3/uL (0-0.8); Eosinophils % (auto) 1.9 % (0.0-7.0); Hematocrit 39.7 % (36.0-46.0); Hemoglobin 13.5 g/dL (12.2-16.2); Lymphocytes # (auto) 1.2 10 ^3/uL (0.4-5.4); Lymphocytes % (auto) 23.9 % (10.0-50.0); Mean Corpuscular Hemoglobin 28.6 pg (28.0-32.0); Mean Corpuscular Hgb Conc. 33.9 g/dL (32.0-36.0); Mean Corpuscular Volume 84.3 fL (80.0-100.0); Monocytes # (auto) 0.4 10 ^3/uL (0-1.3); Monocytes % (auto) 7.4 % (0.0-12.0); Neutrophils # (auto) 3.4 10 ^3/uL (1.6-8.6); Neutrophils % (auto) 66.3 % (37.0-80.0); Platelet Count (auto) 195 10^3/uL (140-450); Red Blood Cells 4.72 10^6/uL (4.0-5.20); Red Cell Distribution Width 14.6 % (11.8-14.3)
[2020-08-14 17:06] LABS: Albumin 4.1 g/dL (3.4-5.0); Calcium 9.1 mg/dL (8.5-10.1); Potassium 3.7 mmol/L (3.5-5.1)
[2020-08-14 17:09] LABS: BUN/Creatinine Ratio 12.3; Bilirubin, Total 0.3 mg/dL (0.2-1.0); Total Protein 7.6 g/dL (6.4-8.2)
== END | disposition home or self-care (01) ==
LOC: LAB 15:01
PROVIDERS: ATTEND Internal Medicine
DX: C18.7 Malignant neoplasm of sigmoid colon (principal); C50.912 Malignant neoplasm of unspecified site of left female breast
CPT/HCPCS: 36415; 80053; 82378; 83615; 85025; 86300

== ENCOUNTER → 2020-09-27 | Outpatient (CLI) | payer MEDICARE, MEDICAID ==
[2020-09-27 12:00] LABS: Urine Bacteria NONE SEEN /hpf (None Seen); Urine Blood Negative /uL (Negative); Urine Specific Gravity 1.003 (1.001-1.035); Urine WBC 2 /hpf (0 - 5)
== END | disposition home or self-care (01) ==
LOC: LAB 11:36
PROVIDERS: ATTEND Internal Medicine Gastroenterology
DX: R82.90 Unspecified abnormal findings in urine (principal)
CPT/HCPCS: 81001; 87086

== ENCOUNTER 2020-12-05 08:55 | Day surgery (SDC) | payer MEDICARE, MEDICAID ==
[2020-12-01 11:56] LABS: Basophils # (auto) 0.1 10 ^3/uL (0-0.2); Basophils % (auto) 1.4 % (0.0-2.0); Eosinophils # (auto) 0.1 10 ^3/uL (0-0.8); Hematocrit 38.4 % (36.0-46.0); Lymphocytes # (auto) 1.4 10 ^3/uL (0.4-5.4); Mean Corpuscular Hemoglobin 28.9 pg (28.0-32.0); Mean Corpuscular Hgb Conc. 33.9 g/dL (32.0-36.0); Mean Corpuscular Volume 85.1 fL (80.0-100.0); Monocytes # (auto) 0.4 10 ^3/uL (0-1.3); Monocytes % (auto) 8.1 % (0.0-12.0); Neutrophils # (auto) 2.9 10 ^3/uL (1.6-8.6); Neutrophils % (auto) 59.5 % (37.0-80.0); Red Blood Cells 4.51 10^6/uL (4.0-5.20); Red Cell Distribution Width 14.1 % (11.8-14.3); White Blood Cell 4.9 10^3/uL (4.4-10.8)
[2020-12-01 12:22] LABS: Urine Bacteria NONE SEEN /hpf (None Seen); Urine Blood Negative /uL (Negative); Urine Specific Gravity 1.006 (1.001-1.035); Urine WBC <1 /hpf (0 - 5)
[2020-12-01 12:24] LABS: Potassium 3.9 mmol/L (3.5-5.1)
[2020-12-01 12:29] LABS: Albumin 3.8 g/dL (3.4-5.0); BUN/Creatinine Ratio 9.6; Bilirubin, Total 0.6 mg/dL (0.2-1.0); Total Protein 7.4 g/dL (6.4-8.2)
[~2020-12-05] VITALS: Ht 160 cm; Wt 76.2 kg
[~2020-12-05 08:55] MED LIST changes: +ASCO500T11 PO; +CHOL200021 PO; +COEN200C9 PO; +CYAN1TAB14 PO; +METF-370 PO; +METH1CHW PO; +MISCCAP66 OR; +OMEG120017 PO; -PANT40TA2 PO
[2020-12-05] MEDS ORDERED: SODIUM CHLORIDE LOCK 10 ML ONE (09:41)
[2020-12-05] MEDS ORDERED: fentaNYL CITRATE 100 MCG/2 ML VL ONE (09:42)
[2020-12-05] MEDS ORDERED: MIDAZOLAM HCL 5 MG/ML-1ML VIAL ONE (09:42)
[2020-12-05] MEDS: diphenhdrAMINE HCL 50 MG/1 ML VL ONE ×2 (10:23→10:34)
[2020-12-05 11:17] VITALS: BP 147/62
== END 2020-12-05 11:40 | disposition home or self-care (01) ==
LOC: GI 08:55
PROVIDERS: ATTEND Internal Medicine Gastroenterology
DX: Z12.11 Encounter for screening for malignant neoplasm of colon (principal); D12.4 Benign neoplasm of descending colon; K63.89 Other specified diseases of intestine; K64.0 First degree hemorrhoids; E11.9 Type 2 diabetes mellitus without complications; E03.9 Hypothyroidism, unspecified; J44.9 Chronic obstructive pulmonary disease, unspecified; F32.9 Major depressive disorder, single episode, unspecified; Z85.3 Personal history of malignant neoplasm of breast; Z90.13 Acquired absence of bilateral breasts and nipples; Z98.890 Other specified postprocedural states; Z79.899 Other long term (current) drug therapy; Z86.010 Personal history of colon polyps; Z20.822 Contact with and (suspected) exposure to COVID-19; Z79.890 Hormone replacement therapy
CPT/HCPCS: 36415; 45385; 80053; 81001; 82962; 85025; 88305; J1200; J2250; J3010; J7030; U0003; 99152

== ENCOUNTER → 2021-01-23 | Outpatient (CLI) | payer MEDICARE, MEDICAID | END | disposition home or self-care (01) | LOC: LAB 15:32 | PROVIDERS: ATTEND Internal Medicine | DX: E11.22 Type 2 diabetes mellitus with diabetic chronic kidney disease (principal); N18.9 Chronic kidney disease, unspecified | CPT/HCPCS: 36415; 83036 ==

== ENCOUNTER → 2021-02-08 | Outpatient (CLI) | payer MEDICARE, MEDICAID ==
[2021-02-08 10:20] LABS: Basophils # (auto) 0 10 ^3/uL (0-0.2); Eosinophils # (auto) 0.1 10 ^3/uL (0-0.8); Eosinophils % (auto) 2.2 % (0.0-7.0); Hematocrit 39.9 % (36.0-46.0); Hemoglobin 13.4 g/dL (12.2-16.2); Lymphocytes % (auto) 20.4 % (10.0-50.0); Mean Corpuscular Hemoglobin 29.1 pg (28.0-32.0); Mean Corpuscular Hgb Conc. 33.5 g/dL (32.0-36.0); Mean Corpuscular Volume 86.9 fL (80.0-100.0); Monocytes # (auto) 0.4 10 ^3/uL (0-1.3); Monocytes % (auto) 8.1 % (0.0-12.0); Neutrophils # (auto) 3.3 10 ^3/uL (1.6-8.6); Neutrophils % (auto) 68.3 % (37.0-80.0); Red Blood Cells 4.59 10^6/uL (4.0-5.20); Red Cell Distribution Width 13.8 % (11.8-14.3); White Blood Cell 4.9 10^3/uL (4.4-10.8)
[2021-02-08 10:46] LABS: Albumin 3.8 g/dL (3.4-5.0); Calcium 8.9 mg/dL (8.5-10.1); Potassium 4.4 mmol/L (3.5-5.1)
[2021-02-08 10:50] LABS: BUN/Creatinine Ratio 13.4; Bilirubin, Total 0.4 mg/dL (0.2-1.0); Total Protein 7.4 g/dL (6.4-8.2)
== END | disposition home or self-care (01) ==
LOC: LAB 09:53
PROVIDERS: ATTEND Internal Medicine
DX: C18.7 Malignant neoplasm of sigmoid colon (principal); C50.912 Malignant neoplasm of unspecified site of left female breast
CPT/HCPCS: 36415; 80053; 83615; 85025

== ENCOUNTER → 2021-07-27 | Outpatient (CLI) | payer OTHER, MEDICAID, MEDICARE ==
[2021-07-27 11:41] LABS: Potassium 4.3 mmol/L (3.5-5.1)
[2021-07-27 11:49] LABS: Albumin 3.8 g/dL (3.4-5.0); BUN/Creatinine Ratio 9.5; Bilirubin, Total 0.5 mg/dL (0.2-1.0); Calcium 9.3 mg/dL (8.5-10.1); Total Protein 7.5 g/dL (6.4-8.2)
== END | disposition home or self-care (01) ==
LOC: LAB 09:59
PROVIDERS: ATTEND Student in an Organized Health Care Education/Training Program
DX: E11.9 Type 2 diabetes mellitus without complications (principal)
CPT/HCPCS: 36415; 80053; 80061; 83036; 84443

== ENCOUNTER → 2021-09-18 | Outpatient (CLI) | payer OTHER, MEDICAID ==
[2021-09-18 15:44] LABS: Basophils # (auto) 0 10 ^3/uL (0-0.2); Basophils % (auto) 0.7 % (0.0-2.0); Eosinophils # (auto) 0.1 10 ^3/uL (0-0.8); Eosinophils % (auto) 2.2 % (0.0-7.0); Hematocrit 37.1 % (36.0-46.0); Hemoglobin 12.8 g/dL (12.2-16.2); Lymphocytes # (auto) 1.3 10 ^3/uL (0.4-5.4); Lymphocytes % (auto) 23.9 % (10.0-50.0); Mean Corpuscular Hemoglobin 28.9 pg (28.0-32.0); Mean Corpuscular Hgb Conc. 34.5 g/dL (32.0-36.0); Mean Corpuscular Volume 83.7 fL (80.0-100.0); Monocytes # (auto) 0.4 10 ^3/uL (0-1.3); Monocytes % (auto) 8.3 % (0.0-12.0); Neutrophils # (auto) 3.5 10 ^3/uL (1.6-8.6); Neutrophils % (auto) 64.9 % (37.0-80.0); Nucleated Red Blood Cells % 0.1 %; Red Blood Cells 4.43 10^6/uL (4.0-5.20); Red Cell Distribution Width 13.8 % (11.8-14.3); White Blood Cell 5.3 10^3/uL (4.4-10.8)
[2021-09-18 16:13] LABS: Albumin 3.7 g/dL (3.4-5.0); BUN/Creatinine Ratio 13.8; Calcium 8.8 mg/dL (8.5-10.1); Potassium 3.9 mmol/L (3.5-5.1)
[2021-09-18 16:15] LABS: Bilirubin, Total 0.2 mg/dL (0.2-1.0); Total Protein 7.4 g/dL (6.4-8.2)
== END | disposition home or self-care (01) ==
LOC: LAB 15:20
PROVIDERS: ATTEND Physician Assistant
DX: C50.912 Malignant neoplasm of unspecified site of left female breast (principal); C18.7 Malignant neoplasm of sigmoid colon
CPT/HCPCS: 36415; 80053; 83615; 85025; 86300

== ENCOUNTER → 2022-01-23 | Outpatient (CLI) | payer MEDICARE, MEDICAID ==
[2022-01-23 10:15] LABS: Cholesterol 168 mg/dL (< 200)
[2022-01-23 10:19] LABS: HDL Cholesterol 73 mg/dL (40-59); LDL Cholesterol 82 mg/dL (< 100); Triglycerides 143 mg/dL (< 150)
== END | disposition home or self-care (01) ==
LOC: LAB 09:15
PROVIDERS: ATTEND Internal Medicine
DX: E11.22 Type 2 diabetes mellitus with diabetic chronic kidney disease (principal); Z79.899 Other long term (current) drug therapy
CPT/HCPCS: 36415; 80061; 82306; 83036

== ENCOUNTER → 2022-02-08 | Outpatient (CLI) | payer MEDICARE, MEDICAID ==
[2022-02-08 11:16] LABS: Basophils # (auto) 0 10 ^3/uL (0-0.2); Basophils % (auto) 0.7 % (0.0-2.0); Eosinophils # (auto) 0.1 10 ^3/uL (0-0.8); Eosinophils % (auto) 2.6 % (0.0-7.0); Hematocrit 38.1 % (36.0-46.0); Hemoglobin 12.8 g/dL (12.2-16.2); Lymphocytes # (auto) 1.1 10 ^3/uL (0.4-5.4); Lymphocytes % (auto) 26.5 % (10.0-50.0); Mean Corpuscular Hemoglobin 28.5 pg (28.0-32.0); Mean Corpuscular Hgb Conc. 33.7 g/dL (32.0-36.0); Mean Corpuscular Volume 84.5 fL (80.0-100.0); Monocytes # (auto) 0.4 10 ^3/uL (0-1.3); Monocytes % (auto) 8.4 % (0.0-12.0); Neutrophils # (auto) 2.6 10 ^3/uL (1.6-8.6); Neutrophils % (auto) 61.8 % (37.0-80.0); Red Blood Cells 4.51 10^6/uL (4.0-5.20); Red Cell Distribution Width 13.6 % (11.8-14.3); White Blood Cell 4.2 10^3/uL (4.4-10.8)
[2022-02-08 11:40] LABS: Albumin 3.9 g/dL (3.4-5.0); Calcium 8.7 mg/dL (8.5-10.1); Potassium 4.3 mmol/L (3.5-5.1)
[2022-02-08 11:45] LABS: BUN/Creatinine Ratio 14.1; Bilirubin, Total 0.4 mg/dL (0.2-1.0); Total Protein 7.2 g/dL (6.4-8.2)
== END | disposition home or self-care (01) ==
LOC: LAB 10:34
PROVIDERS: ATTEND Internal Medicine
DX: C50.912 Malignant neoplasm of unspecified site of left female breast (principal); C18.7 Malignant neoplasm of sigmoid colon
CPT/HCPCS: 36415; 80053; 83615; 85025; 86300

== ENCOUNTER → 2022-04-17 | Outpatient (CLI) | payer MEDICARE, MEDICAID ==
[2022-04-17 13:00] LABS: Basophils # (auto) 0 10 ^3/uL (0-0.2); Basophils % (auto) 0.8 % (0.0-2.0); Eosinophils # (auto) 0.1 10 ^3/uL (0-0.8); Eosinophils % (auto) 2.1 % (0.0-7.0); Hematocrit 37.2 % (36.0-46.0); Hemoglobin 12.3 g/dL (12.2-16.2); Lymphocytes # (auto) 1.3 10 ^3/uL (0.4-5.4); Lymphocytes % (auto) 28.3 % (10.0-50.0); Mean Corpuscular Hemoglobin 27.9 pg (28.0-32.0); Mean Corpuscular Hgb Conc. 33.2 g/dL (32.0-36.0); Mean Corpuscular Volume 84.2 fL (80.0-100.0); Monocytes # (auto) 0.4 10 ^3/uL (0-1.3); Monocytes % (auto) 9.8 % (0.0-12.0); Neutrophils # (auto) 2.6 10 ^3/uL (1.6-8.6); Nucleated Red Blood Cells % 0.1 %; Red Blood Cells 4.42 10^6/uL (4.0-5.20); Red Cell Distribution Width 14.4 % (11.8-14.3); White Blood Cell 4.4 10^3/uL (4.4-10.8)
[2022-04-17 13:44] LABS: Albumin 3.7 g/dL (3.4-5.0); Calcium 9.1 mg/dL (8.5-10.1); Potassium 3.9 mmol/L (3.5-5.1)
[2022-04-17 13:48] LABS: BUN/Creatinine Ratio 10.8; Bilirubin, Total 0.3 mg/dL (0.2-1.0); Total Protein 7.1 g/dL (6.4-8.2)
== END | disposition home or self-care (01) ==
LOC: LAB 12:45
PROVIDERS: ATTEND Internal Medicine
DX: C18.7 Malignant neoplasm of sigmoid colon (principal); C50.912 Malignant neoplasm of unspecified site of left female breast
CPT/HCPCS: 36415; 80053; 83615; 85025; 86300

== ENCOUNTER → 2022-07-24 | Outpatient (CLI) | payer MEDICARE, MEDICAID ==
[2022-07-24 13:13] LABS: Basophils # (auto) 0 10 ^3/uL (0-0.2); Basophils % (auto) 0.5 % (0.0-2.0); Eosinophils # (auto) 0.1 10 ^3/uL (0-0.8); Eosinophils % (auto) 2.4 % (0.0-7.0); Hemoglobin 13.4 g/dL (12.2-16.2); Lymphocytes # (auto) 1.3 10 ^3/uL (0.4-5.4); Lymphocytes % (auto) 25.2 % (10.0-50.0); Mean Corpuscular Hemoglobin 28.1 pg (28.0-32.0); Mean Corpuscular Hgb Conc. 33.6 g/dL (32.0-36.0); Mean Corpuscular Volume 83.7 fL (80.0-100.0); Monocytes # (auto) 0.4 10 ^3/uL (0-1.3); Monocytes % (auto) 8.1 % (0.0-12.0); Neutrophils # (auto) 3.3 10 ^3/uL (1.6-8.6); Neutrophils % (auto) 63.8 % (37.0-80.0); Nucleated Red Blood Cells % 0.2 %; Red Blood Cells 4.78 10^6/uL (4.0-5.20); Red Cell Distribution Width 14.5 % (11.8-14.3); White Blood Cell 5.2 10^3/uL (4.4-10.8)
[2022-07-24 15:29] LABS: Albumin 3.7 g/dL (3.4-5.0); Calcium 8.8 mg/dL (8.5-10.1); Potassium 4.1 mmol/L (3.5-5.1)
[2022-07-24 15:32] LABS: BUN/Creatinine Ratio 14.5 (10.0-20.0); Bilirubin, Total 0.3 mg/dL (0.2-1.0); Total Protein 7.4 g/dL (6.4-8.2)
== END | disposition home or self-care (01) ==
LOC: LAB 12:52
PROVIDERS: ATTEND Internal Medicine
DX: C50.912 Malignant neoplasm of unspecified site of left female breast (principal); C18.7 Malignant neoplasm of sigmoid colon
CPT/HCPCS: 36415; 80053; 83615; 85025; 86300

== ENCOUNTER → 2022-08-12 | Outpatient (CLI) | payer MEDICARE, MEDICAID ==
[2022-08-12 11:04] LABS: Albumin 3.6 g/dL (3.4-5.0); BUN/Creatinine Ratio 14.9 (10.0-20.0); Bilirubin, Total 0.4 mg/dL (0.2-1.0); Calcium 9.4 mg/dL (8.5-10.1); Magnesium 2.2 mg/dL (1.6-2.6); Total Protein 7.2 g/dL (6.4-8.2)
[2022-08-12 11:06] LABS: % Iron Saturation 19.1 % (15-50)
[2022-08-12 11:20] LABS: Basophils # (auto) 0 10 ^3/uL (0-0.2); Basophils % (auto) 0.4 % (0.0-2.0); Eosinophils # (auto) 0.1 10 ^3/uL (0-0.8); Eosinophils % (auto) 2.2 % (0.0-7.0); Hemoglobin 12.6 g/dL (12.2-16.2); Lymphocytes # (auto) 1.2 10 ^3/uL (0.4-5.4); Lymphocytes % (auto) 18.3 % (10.0-50.0); Mean Corpuscular Hgb Conc. 33.2 g/dL (32.0-36.0); Mean Corpuscular Volume 84.4 fL (80.0-100.0); Monocytes # (auto) 0.4 10 ^3/uL (0-1.3); Neutrophils # (auto) 4.5 10 ^3/uL (1.6-8.6); Neutrophils % (auto) 72.1 % (37.0-80.0); Nucleated Red Blood Cells % 0.1 %; Red Cell Distribution Width 14.5 % (11.8-14.3); White Blood Cell 6.3 10^3/uL (4.4-10.8)
== END | disposition home or self-care (01) ==
LOC: LAB 09:44
PROVIDERS: ATTEND Internal Medicine
DX: C50.912 Malignant neoplasm of unspecified site of left female breast (principal); C18.7 Malignant neoplasm of sigmoid colon
CPT/HCPCS: 36415; 80053; 82306; 82728; 83540; 83550; 83615; 83735; 85025

== ENCOUNTER 2022-08-24 00:01 | Emergency (ER) | payer MEDICARE, MEDICAID ==
[~2022-08-24] VITALS: Ht 157.5 cm; Wt 82.7 kg
[2022-08-24 00:36] LABS: Basophils # (auto) 0 10 ^3/uL (0-0.2); Basophils % (auto) 0.2 % (0.0-2.0); Eosinophils # (auto) 0 10 ^3/uL (0-0.8); Eosinophils % (auto) 0.2 % (0.0-7.0); Hematocrit 38.9 % (36.0-46.0); Hemoglobin 13.4 g/dL (12.2-16.2); Lymphocytes # (auto) 0.5 10 ^3/uL (0.4-5.4); Lymphocytes % (auto) 3.6 % (10.0-50.0); Mean Corpuscular Hemoglobin 28.6 pg (28.0-32.0); Mean Corpuscular Hgb Conc. 34.3 g/dL (32.0-36.0); Mean Corpuscular Volume 83.3 fL (80.0-100.0); Monocytes # (auto) 0.6 10 ^3/uL (0-1.3); Monocytes % (auto) 4.1 % (0.0-12.0); Neutrophils # (auto) 12.7 10 ^3/uL (1.6-8.6); Neutrophils % (auto) 91.9 % (37.0-80.0); Red Blood Cells 4.67 10^6/uL (4.0-5.20); Red Cell Distribution Width 14.5 % (11.8-14.3); White Blood Cell 13.9 10^3/uL (4.4-10.8)
[2022-08-24 00:53] LABS: Albumin 3.8 g/dL (3.4-5.0); BUN/Creatinine Ratio 12.9 (10.0-20.0); Calcium 9.5 mg/dL (8.5-10.1); Potassium 3.8 mmol/L (3.5-5.1)
[2022-08-24 00:55] LABS: Bilirubin, Total 0.5 mg/dL (0.2-1.0); Total Protein 7.6 g/dL (6.4-8.2)
[2022-08-24 01:07] LABS: Urine Bacteria NONE SEEN /hpf (None Seen); Urine Blood Negative /uL (Negative); Urine Specific Gravity 1.013 (1.001-1.035); Urine WBC 4 /hpf (0 - 5)
[2022-08-24] MEDS ORDERED: KETOROLAC TROMETH 30 MG/ML 1ML VIAL IV ONE (01:15)
[2022-08-24] MEDS ORDERED: ACETAMINOPHEN 325 MG TAB PO ONE (01:15)
[2022-08-24] MEDS ORDERED: IOHEXOL 350 MG/ML 100ML IJ ONE (02:14)
[2022-08-24 05:10] VITALS: BP 109/53
[2022-08-24] MEDS ORDERED: ACET-1079 PO (06:34)
[2022-08-24] MEDS ORDERED: OXY5T GT (06:34)
== END 2022-08-24 06:54 | disposition home or self-care (01) ==
LOC: ER 00:01
DX: K80.20 Calculus of gallbladder without cholecystitis without obstruction (principal); J44.9 Chronic obstructive pulmonary disease, unspecified; E11.9 Type 2 diabetes mellitus without complications; E78.5 Hyperlipidemia, unspecified; Z20.822 Contact with and (suspected) exposure to COVID-19
CPT/HCPCS: 36415; 71260; 74177; 80053; 81001; 83690; 84484; 85025; 87426; 87804; 93005; 96374; 99285; J1885; Q9967

== ENCOUNTER 2022-08-28 14:23 | Inpatient (IN) | payer MEDICARE, MEDICAID ==
[~2022-08-28] VITALS: Ht 30.5 cm; Wt 89.0 kg
[~2022-08-28 14:23] MED LIST changes: +ACET-1079 PO; +OXY5T GT
[2022-08-28 17:00] VITALS: BP 149/71
[2022-08-28] MEDS ORDERED: metroNIDAZOLE 500MG/100ML 100 ML IV ONE (17:15)
[2022-08-28] MEDS ORDERED: HYDROmorphone HCL 2 MG/ML VL/or syr IV PRN (17:15)
[2022-08-28] MEDS ORDERED: cefTRIAXone 1GM/50ML D5W 50 ML IV ONE (17:15)
[2022-08-28] MEDS ORDERED: MAALOX PLUS or MAALOX 30 ML PO PRN (17:15)
[2022-08-28] MEDS ORDERED: SODIUM CHLORIDE 0.9% 1,000 ML IV SCH (17:15)
[2022-08-28] MEDS ORDERED: ACETAMINOPHEN 325 MG TAB PO PRN (17:15)
[2022-08-28] MEDS ORDERED: LORazepam 0.5 MG TAB PO PRN (17:15)
[2022-08-28] MEDS ORDERED: HYDROcodone-ACET 5/325MG TAB PO PRN (17:15)
[2022-08-28 18:38] LABS: Albumin 3.9 g/dL (3.4-5.0); Calcium 10.4 mg/dL (8.5-10.1); Magnesium 2.5 mg/dL (1.6-2.6)
[2022-08-28 18:42] LABS: BUN/Creatinine Ratio 14.8 (10.0-20.0); Bilirubin, Total 0.4 mg/dL (0.2-1.0); Total Protein 8.2 g/dL (6.4-8.2)
[2022-08-28 18:43] LABS: Basophils # (auto) 0 10 ^3/uL (0-0.2); Basophils % (auto) 0.5 % (0.0-2.0); Eosinophils # (auto) 0.2 10 ^3/uL (0-0.8); Eosinophils % (auto) 1.9 % (0.0-7.0); Hematocrit 39.6 % (36.0-46.0); Hemoglobin 13.1 g/dL (12.2-16.2); Lymphocytes # (auto) 1.5 10 ^3/uL (0.4-5.4); Lymphocytes % (auto) 18.2 % (10.0-50.0); Mean Corpuscular Hemoglobin 27.7 pg (28.0-32.0); Mean Corpuscular Hgb Conc. 33.2 g/dL (32.0-36.0); Mean Corpuscular Volume 83.4 fL (80.0-100.0); Monocytes # (auto) 0.5 10 ^3/uL (0-1.3); Monocytes % (auto) 6.1 % (0.0-12.0); Neutrophils # (auto) 6.1 10 ^3/uL (1.6-8.6); Neutrophils % (auto) 73.3 % (37.0-80.0); Nucleated Red Blood Cells % 0.1 %; Red Blood Cells 4.74 10^6/uL (4.0-5.20); Red Cell Distribution Width 14.2 % (11.8-14.3); White Blood Cell 8.4 10^3/uL (4.4-10.8)
[2022-08-28 18:48] LABS: INR 1.03 (0.9-1.15); Partial Thromboplastin Time 35.1 sec (24.6-33.4)
[2022-08-28 21:59] VITALS: BP 129/68
[2022-08-28] MEDS: ONDANSETRON HCL 4 MG/2 ML VIAL IV PRN (22:19)
[2022-08-28] MEDS: metroNIDAZOLE 500MG/100ML 100 ML IV SCH (22:19)
[2022-08-29 05:27] VITALS: BP 115/59
[2022-08-29] MEDS: metroNIDAZOLE 500MG/100ML 100 ML IV SCH ×3 (06:40→21:30)
[2022-08-29 08:00] VITALS: BP 102/45
[2022-08-29 08:39] VITALS: BP 102/45
[2022-08-29] MEDS: cefTRIAXone 1GM/50ML D5W 50 ML IV SCH (08:54)
[2022-08-29] MEDS: PANTOPRAZOLE 40 MG/10 ML VIAL INJ IV SCH (08:55)
[2022-08-29 10:05] LABS: Urine Bacteria NONE SEEN /hpf (None Seen); Urine Blood Negative /uL (Negative); Urine Specific Gravity 1.012 (1.001-1.035); Urine WBC 1 /hpf (0 - 5)
[2022-08-29 11:08] LABS: Hepatitis C Antibody Negative (Negative)
[2022-08-29 12:36] VITALS: BP 120/67
[2022-08-29] MEDS ORDERED: LIDOCAINE W/ EPINEPHRINE 1% 20ML VIAL ONE (14:03)
[2022-08-29] MEDS ORDERED: BUPIVACAINE 0.25% INJ 50ML VIAL ONE (14:03)
[2022-08-29] MEDS ORDERED: ceFAZolin 1GM/50ML 100 ML IV ONE (14:05)
[2022-08-29] MEDS ORDERED: MIDAZOLAM HCL 2MG/2ML 2ml VIAL (1mg/ml) ONE (14:16)
[2022-08-29] MEDS ORDERED: fentaNYL CITRATE 100 MCG/2 ML VL ONE (14:16)
[2022-08-29] MEDS ORDERED: ROCURONIUM 10MG/ML 10ML VIAL IV ONE (14:16)
[2022-08-29] MEDS ORDERED: D5W/SOD CHL 0.45%/KCL 20MEQ 1,000 ML IV SCH (15:15)
[2022-08-29] MEDS: HYDROmorphone HCL 2 MG/ML VL/or syr IV PRN (16:16)
[2022-08-29] MEDS: D5W/SOD CHL 0.45% 1,000 ML IV SCH (16:44)
[2022-08-29 16:54] VITALS: BP 117/55
[2022-08-29 22:00] VITALS: BP 118/57
[2022-08-30] MEDS: D5W/SOD CHL 0.45% 1,000 ML IV SCH ×2 (00:20→04:30)
[2022-08-30] MEDS: HYDROmorphone HCL 2 MG/ML VL/or syr IV PRN (00:51)
[2022-08-30 05:00] VITALS: BP 109/51
[2022-08-30] MEDS: ONDANSETRON HCL 4 MG/2 ML VIAL IV PRN (05:34)
[2022-08-30] MEDS: metroNIDAZOLE 500MG/100ML 100 ML IV SCH ×2 (05:38→13:56)
[2022-08-30 05:50] LABS: Basophils # (auto) 0 10 ^3/uL (0-0.2); Basophils % (auto) 0.4 % (0.0-2.0); Eosinophils # (auto) 0.1 10 ^3/uL (0-0.8); Hematocrit 32.4 % (36.0-46.0); Hemoglobin 10.9 g/dL (12.2-16.2); Lymphocytes # (auto) 1.2 10 ^3/uL (0.4-5.4); Lymphocytes % (auto) 16.3 % (10.0-50.0); Mean Corpuscular Hemoglobin 28.3 pg (28.0-32.0); Mean Corpuscular Hgb Conc. 33.7 g/dL (32.0-36.0); Mean Corpuscular Volume 83.9 fL (80.0-100.0); Monocytes # (auto) 0.6 10 ^3/uL (0-1.3); Neutrophils # (auto) 5.3 10 ^3/uL (1.6-8.6); Neutrophils % (auto) 74.3 % (37.0-80.0); Red Blood Cells 3.85 10^6/uL (4.0-5.20); Red Cell Distribution Width 14.5 % (11.8-14.3); White Blood Cell 7.1 10^3/uL (4.4-10.8)
[2022-08-30 08:00] VITALS: BP 115/56
[2022-08-30 09:00] VITALS: BP 115/56
[2022-08-30] MEDS: PANTOPRAZOLE 40 MG/10 ML VIAL INJ IV SCH (09:24)
[2022-08-30] MEDS: cefTRIAXone 1GM/50ML D5W 50 ML IV SCH (09:25)
[2022-08-30 13:00] VITALS: BP 118/63
[2022-08-30] MEDS ORDERED: D5W/SOD CHL 0.45% 1,000 ML IV SCH (13:15)
[2022-08-30] MEDS ORDERED: METR500T PO (13:16)
[2022-08-30] MEDS ORDERED: LEVO500T31 PO (13:16)
[2022-08-30] MEDS ORDERED: DOCU-94 PO (13:16)
[2022-08-30] MEDS ORDERED: HYDR1TAB97 PO (13:16)
[2022-08-30 15:37] VITALS: BP 118/63
[2022-08-30 17:00] VITALS: BP 113/48
== END 2022-08-30 18:55 | disposition home or self-care (01) | DRG 418 ==
LOC: WEST WING 16:27
PROVIDERS: ADMIT Internal Medicine; ATTEND Internal Medicine
PROC: 0FT44ZZ Resection of Gallbladder, Percutaneous Endoscopic Approach (ICD-10-PCS; principal; 2022-08-29 14:11)
DX: K80.12 Calculus of gallbladder with acute and chronic cholecystitis without obstruction (principal); R71.0 Precipitous drop in hematocrit; E11.9 Type 2 diabetes mellitus without complications; E03.9 Hypothyroidism, unspecified; F32.A Depression, unspecified; J44.9 Chronic obstructive pulmonary disease, unspecified; Z82.49 Family history of ischemic heart disease and other diseases of the circulatory system; Z85.038 Personal history of other malignant neoplasm of large intestine; Z85.3 Personal history of malignant neoplasm of breast; Z90.13 Acquired absence of bilateral breasts and nipples; E66.9 Obesity, unspecified
CPT/HCPCS: 36415; 71045; 74181; 76705; 80053; 81001; 82247; 82962; 83735; 84443; 85025; 85610; 85730; 86803; 86850; 86900; 86901; 87340; 93306; C9113; G0378; J0690; J0696; J2250; J2405; J3490

== ENCOUNTER 2022-11-19 09:45 | Day surgery (SDC) | payer MEDICARE, MEDICAID ==
[2022-11-15 10:17] LABS: Basophils # (auto) 0 10 ^3/uL (0-0.2); Basophils % (auto) 0.9 % (0.0-2.0); Eosinophils # (auto) 0.2 10 ^3/uL (0-0.8); Eosinophils % (auto) 4.1 % (0.0-7.0); Hematocrit 35.9 % (36.0-46.0); Hemoglobin 11.9 g/dL (12.2-16.2); Lymphocytes # (auto) 1.1 10 ^3/uL (0.4-5.4); Lymphocytes % (auto) 25.9 % (10.0-50.0); Mean Corpuscular Hemoglobin 27.7 pg (28.0-32.0); Mean Corpuscular Hgb Conc. 33.1 g/dL (32.0-36.0); Mean Corpuscular Volume 83.7 fL (80.0-100.0); Monocytes # (auto) 0.5 10 ^3/uL (0-1.3); Monocytes % (auto) 10.6 % (0.0-12.0); Neutrophils # (auto) 2.6 10 ^3/uL (1.6-8.6); Neutrophils % (auto) 58.5 % (37.0-80.0); Red Cell Distribution Width 15.3 % (11.8-14.3); White Blood Cell 4.4 10^3/uL (4.4-10.8)
[2022-11-15 10:33] LABS: INR 1.08 (0.9-1.15); Partial Thromboplastin Time 32.5 SEC (24.5-34.5)
[2022-11-15 11:25] LABS: Albumin 3.5 g/dL (3.4-5.0); Calcium 9.3 mg/dL (8.5-10.1)
[2022-11-15 11:28] LABS: BUN/Creatinine Ratio 12.8 (10.0-20.0); Bilirubin, Total 0.3 mg/dL (0.2-1.0)
[~2022-11-19] VITALS: Ht 157.5 cm; Wt 81.6 kg
[~2022-11-19 09:45] MED LIST changes: +DOCU-94 PO; +HYDR1TAB97 PO; +METR500T PO
[2022-11-19] MEDS: diphenhdrAMINE HCL 50 MG/1 ML VL ONE ×2 (11:25→11:28)
[2022-11-19] MEDS: fentaNYL CITRATE 100 MCG/2 ML VL ONE ×3 (11:25→11:34)
[2022-11-19] MEDS: MIDAZOLAM HCL 5 MG/ML-1ML VIAL ONE ×3 (11:25→11:34)
[2022-11-19 12:40] VITALS: BP 120/57; PULSE 52; RESP 13; O2SAT 99
== END 2022-11-19 11:55 | disposition home or self-care (01) ==
LOC: GI 09:45
PROVIDERS: ATTEND Internal Medicine Gastroenterology
DX: R19.4 Change in bowel habit (principal); D12.5 Benign neoplasm of sigmoid colon; D12.8 Benign neoplasm of rectum; K62.89 Other specified diseases of anus and rectum; K64.8 Other hemorrhoids; J44.9 Chronic obstructive pulmonary disease, unspecified; E03.9 Hypothyroidism, unspecified; E11.9 Type 2 diabetes mellitus without complications; Z87.891 Personal history of nicotine dependence; Z79.891 Long term (current) use of opiate analgesic; Z90.49 Acquired absence of other specified parts of digestive tract; Z79.51 Long term (current) use of inhaled steroids; Z79.890 Hormone replacement therapy; Z79.899 Other long term (current) drug therapy; Z98.890 Other specified postprocedural states
CPT/HCPCS: 36415; 45380; 45385; 80053; 82962; 85025; 85610; 85730; 88305; J1200; J2250; J3010; J7030; 99152; 99153

== ENCOUNTER → 2023-01-08 | Outpatient (CLI) | payer MEDICARE, MEDICAID ==
[2023-01-08 12:46] LABS: Basophils # (auto) 0 10 ^3/uL (0-0.2); Basophils % (auto) 0.5 % (0.0-2.0); Eosinophils # (auto) 0.2 10 ^3/uL (0-0.8); Eosinophils % (auto) 2.9 % (0.0-7.0); Hematocrit 38.8 % (36.0-46.0); Hemoglobin 12.9 g/dL (12.2-16.2); Lymphocytes # (auto) 1.5 10 ^3/uL (0.4-5.4); Lymphocytes % (auto) 29.6 % (10.0-50.0); Mean Corpuscular Hemoglobin 27.6 pg (28.0-32.0); Mean Corpuscular Hgb Conc. 33.2 g/dL (32.0-36.0); Monocytes # (auto) 0.4 10 ^3/uL (0-1.3); Monocytes % (auto) 8.5 % (0.0-12.0); Neutrophils % (auto) 58.5 % (37.0-80.0); Red Blood Cells 4.67 10^6/uL (4.0-5.20); Red Cell Distribution Width 15.1 % (11.8-14.3); White Blood Cell 5.2 10^3/uL (4.4-10.8)
[2023-01-08 13:37] LABS: Alanine Aminotransferase 18 U/L (7-40); Albumin 5.1 g/dL (3.2-4.8); Alkaline Phosphatase 92 U/L (46-116); Anion Gap 4 (5-15); Aspartate Aminotransferase 18 U/L (13-40); BUN/Creatinine Ratio 12.8 (10.0-20.0); Blood Urea Nitrogen 11 mg/dL (9-23); Calcium 9.7 mg/dL (8.7-10.4); Carbon Dioxide 29 mmol/L (20-30); Chloride 108 mmol/L (98-107); Glucose 104 mg/dL (74-106); Potassium 5.3 mmol/L (3.5-5.1); Sodium 141 mmol/L (136-145)
[2023-01-08 13:38] LABS: Bilirubin, Total 0.3 mg/dL (0.2-1.0); Total Protein 7.3 g/dL (5.7-8.2)
== END | disposition home or self-care (01) ==
LOC: LAB 12:30
PROVIDERS: ATTEND Internal Medicine
DX: C50.912 Malignant neoplasm of unspecified site of left female breast (principal); C18.7 Malignant neoplasm of sigmoid colon
CPT/HCPCS: 36415; 80053; 83615; 85025; 86300

== ENCOUNTER → 2023-02-10 | Outpatient (CLI) | payer MEDICARE, MEDICAID ==
[2023-02-10 11:53] LABS: Basophils # (auto) 0 10 ^3/uL (0-0.2); Basophils % (auto) 0.7 % (0.0-2.0); Eosinophils # (auto) 0.2 10 ^3/uL (0-0.8); Eosinophils % (auto) 2.7 % (0.0-7.0); Hemoglobin 13.1 g/dL (12.2-16.2); Lymphocytes # (auto) 1.7 10 ^3/uL (0.4-5.4); Lymphocytes % (auto) 28.7 % (10.0-50.0); Mean Corpuscular Hgb Conc. 33.6 g/dL (32.0-36.0); Mean Corpuscular Volume 83.6 fL (80.0-100.0); Monocytes # (auto) 0.5 10 ^3/uL (0-1.3); Monocytes % (auto) 8.5 % (0.0-12.0); Neutrophils # (auto) 3.4 10 ^3/uL (1.6-8.6); Neutrophils % (auto) 59.4 % (37.0-80.0); Nucleated Red Blood Cells % 0.1 %; Red Blood Cells 4.67 10^6/uL (4.0-5.20); Red Cell Distribution Width 15.2 % (11.8-14.3); White Blood Cell 5.8 10^3/uL (4.4-10.8)
== END | disposition home or self-care (01) ==
LOC: LAB 11:36
PROVIDERS: ATTEND Internal Medicine
DX: C50.912 Malignant neoplasm of unspecified site of left female breast (principal); C18.7 Malignant neoplasm of sigmoid colon
CPT/HCPCS: 36415; 85025

== ENCOUNTER 2023-03-26 12:21 | Day surgery (SDC) | payer MEDICARE, MEDICAID ==
[2023-03-21 10:06] LABS: Basophils # (auto) 0 10 ^3/uL (0-0.2); Basophils % (auto) 0.9 % (0.0-2.0); Eosinophils # (auto) 0.2 10 ^3/uL (0-0.8); Eosinophils % (auto) 3.3 % (0.0-7.0); Hematocrit 40.5 % (36.0-46.0); Hemoglobin 13.4 g/dL (12.2-16.2); Lymphocytes # (auto) 1.4 10 ^3/uL (0.4-5.4); Lymphocytes % (auto) 27.1 % (10.0-50.0); Mean Corpuscular Hemoglobin 27.6 pg (28.0-32.0); Mean Corpuscular Volume 83.8 fL (80.0-100.0); Monocytes # (auto) 0.5 10 ^3/uL (0-1.3); Monocytes % (auto) 8.9 % (0.0-12.0); Neutrophils # (auto) 3.2 10 ^3/uL (1.6-8.6); Neutrophils % (auto) 59.8 % (37.0-80.0); Nucleated Red Blood Cells % 0.1 %; Red Blood Cells 4.83 10^6/uL (4.0-5.20); White Blood Cell 5.3 10^3/uL (4.4-10.8)
[2023-03-21 10:31] LABS: INR 1.04 (0.9-1.15); Partial Thromboplastin Time 33.2 SEC (24.5-34.5); Prothrombin Time 10.9 sec (9.3-11.8)
[2023-03-21 10:58] LABS: Alanine Aminotransferase 27 U/L (7-40); Albumin 4.7 g/dL (3.2-4.8); Alkaline Phosphatase 93 U/L (46-116); Anion Gap 6 (5-15); Aspartate Aminotransferase 25 U/L (13-40); BUN/Creatinine Ratio 12.8 (10.0-20.0); Bilirubin, Total 0.5 mg/dL (0.2-1.0); Blood Urea Nitrogen 12 mg/dL (9-23); Calcium 9.7 mg/dL (8.5-10.1); Carbon Dioxide 28 mmol/L (20-30); Chloride 107 mmol/L (98-107); Glucose 96 mg/dL (74-106); Potassium 4.2 mmol/L (3.5-5.1); Sodium 141 mmol/L (136-145)
[2023-03-21 10:59] LABS: Total Protein 7.2 g/dL (5.7-8.2)
[~2023-03-26] VITALS: Ht 157.5 cm; Wt 83.0 kg
[~2023-03-26 12:21] MED LIST changes: +FLUT250M2 IN; -HYDR1TAB97 PO; -METR500T PO; -OXY5T GT
[2023-03-26] MEDS ORDERED: SODIUM CHLORIDE LOCK 10 ML ONE (12:56)
[2023-03-26] MEDS ORDERED: LIDOCAINE VISCOUS 2% 15ML UD ONE (13:01)
[2023-03-26 13:03] VITALS: PULSE 97; RESP 14; O2SAT 97
[2023-03-26] MEDS: diphenhdrAMINE HCL 50 MG/1 ML VL ONE ×2 (13:06→13:08)
[2023-03-26] MEDS: fentaNYL CITRATE 100 MCG/2 ML VL ONE ×2 (13:06→13:10)
[2023-03-26] MEDS: MIDAZOLAM HCL 5 MG/ML-1ML VIAL ONE ×2 (13:06→13:10)
[2023-03-26 13:21] VITALS: PULSE 63; RESP 14; TEMP 98; O2SAT 97
[2023-03-26 13:48] VITALS: BP 129/60; PULSE 53; RESP 13; O2SAT 96
== END 2023-03-26 13:58 | disposition home or self-care (01) ==
LOC: GI 12:21
PROVIDERS: ATTEND Internal Medicine Gastroenterology
DX: D64.9 Anemia, unspecified (principal); K25.9 Gastric ulcer, unspecified as acute or chronic, without hemorrhage or perforation; K44.9 Diaphragmatic hernia without obstruction or gangrene; K31.4 Gastric diverticulum; K22.10 Ulcer of esophagus without bleeding; K29.90 Gastroduodenitis, unspecified, without bleeding; J44.9 Chronic obstructive pulmonary disease, unspecified; E03.9 Hypothyroidism, unspecified; Z79.899 Other long term (current) drug therapy; Z79.890 Hormone replacement therapy; Z90.49 Acquired absence of other specified parts of digestive tract
CPT/HCPCS: 36415; 43239; 80053; 85025; 85610; 85730; J1200; J2250; J3010; J7030

== ENCOUNTER → 2023-06-03 | Outpatient (CLI) | payer MEDICARE, MEDICAID ==
[2023-06-03 12:19] LABS: Triglycerides 115 mg/dL (< 150)
[2023-06-03 12:20] LABS: LDL Cholesterol 107 mg/dL (< 100)
[2023-06-03 12:21] LABS: Cholesterol 191 mg/dL (< 200); HDL Cholesterol 70 mg/dL (40-59)
== END | disposition home or self-care (01) ==
LOC: LAB 11:21
PROVIDERS: ATTEND Internal Medicine
DX: E11.9 Type 2 diabetes mellitus without complications (principal); E78.5 Hyperlipidemia, unspecified
CPT/HCPCS: 36415; 80061

== ENCOUNTER → 2023-06-04 | Outpatient (CLI) | payer MEDICARE, MEDICAID ==
[2023-06-04 12:28] LABS: Chloride 107 mmol/L (98-107); Potassium 4.5 mmol/L (3.5-5.1); Sodium 142 mmol/L (136-145)
[2023-06-04 12:29] LABS: Anion Gap 6 (5-15); Carbon Dioxide 29 mmol/L (20-30)
[2023-06-04 12:34] LABS: BUN/Creatinine Ratio 10.4 (10.0-20.0); Blood Urea Nitrogen 10 mg/dL (9-23); Glucose 101 mg/dL (74-106)
== END | disposition home or self-care (01) ==
LOC: LAB 11:15
PROVIDERS: ATTEND Internal Medicine
DX: E03.9 Hypothyroidism, unspecified (principal)
CPT/HCPCS: 36415; 80048; 84439; 84443

== ENCOUNTER → 2023-06-11 | Outpatient (CLI) | payer MEDICARE, MEDICAID ==
[2023-06-11 12:56] LABS: Urine Bacteria NONE SEEN /hpf (None Seen); Urine Blood Negative /uL (Negative); Urine Clarity HAZY (Clear); Urine Color Straw (Yellow); Urine Hyaline Cast FEW /lpf (0 - 2); Urine Protein, UAD Negative (Negative); Urine Specific Gravity 1.016 (1.001-1.035); Urine Urobilinogen Normal (Negative); Urine WBC 1 /hpf (0 - 5); Urine pH 5.5 (5.0-8.0)
== END | disposition home or self-care (01) ==
LOC: LAB 11:19
PROVIDERS: ATTEND Internal Medicine
DX: E11.9 Type 2 diabetes mellitus without complications (principal)
CPT/HCPCS: 36415; 81001; 82043; 83036

== ENCOUNTER → 2023-07-09 | Outpatient (CLI) | payer MEDICARE, MEDICAID ==
[2023-07-09 09:47] LABS: Basophils # (auto) 0 10 ^3/uL (0-0.2); Basophils % (auto) 0.7 % (0.0-2.0); Eosinophils # (auto) 0.2 10 ^3/uL (0-0.8); Eosinophils % (auto) 4.2 % (0.0-7.0); Hematocrit 39.2 % (36.0-46.0); Hemoglobin 12.8 g/dL (12.2-16.2); Lymphocytes # (auto) 1.1 10 ^3/uL (0.4-5.4); Lymphocytes % (auto) 23.8 % (10.0-50.0); Mean Corpuscular Hemoglobin 27.7 pg (28.0-32.0); Mean Corpuscular Hgb Conc. 32.6 g/dL (32.0-36.0); Mean Corpuscular Volume 85.1 fL (80.0-100.0); Monocytes # (auto) 0.3 10 ^3/uL (0-1.3); Monocytes % (auto) 7.1 % (0.0-12.0); Neutrophils # (auto) 3.1 10 ^3/uL (1.6-8.6); Neutrophils % (auto) 64.2 % (37.0-80.0); Red Blood Cells 4.61 10^6/uL (4.0-5.20); Red Cell Distribution Width 13.9 % (11.8-14.3); White Blood Cell 4.8 10^3/uL (4.4-10.8)
[2023-07-09 10:28] LABS: Alanine Aminotransferase 22 U/L (7-40); Albumin 4.4 g/dL (3.2-4.8); Alkaline Phosphatase 77 U/L (46-116); Anion Gap 8 (5-15); Aspartate Aminotransferase 27 U/L (13-40); BUN/Creatinine Ratio 14.6 (10.0-20.0); Blood Urea Nitrogen 13 mg/dL (9-23); Calcium 9.2 mg/dL (8.5-10.1); Carbon Dioxide 26 mmol/L (20-30); Chloride 108 mmol/L (98-107); Glucose 114 mg/dL (74-106); Potassium 3.8 mmol/L (3.5-5.1); Sodium 142 mmol/L (136-145)
[2023-07-09 10:29] LABS: Bilirubin, Total 0.5 mg/dL (0.2-1.0)
== END | disposition home or self-care (01) ==
LOC: LAB 09:09
PROVIDERS: ATTEND Physician Assistant
DX: C18.7 Malignant neoplasm of sigmoid colon (principal); C50.912 Malignant neoplasm of unspecified site of left female breast
CPT/HCPCS: 36415; 80053; 83615; 85025; 86300

== ENCOUNTER → 2023-10-08 | Outpatient (CLI) | payer MEDICARE, MEDICAID ==
[~2023-10-08] MED LIST changes: +ALBUTEROL SULF 2.5 MG/0.5ML(0.5%) NEB SOLN ONE
== END | disposition home or self-care (01) ==
LOC: RT 10:40
PROVIDERS: ATTEND Internal Medicine Pulmonary Disease
DX: J44.9 Chronic obstructive pulmonary disease, unspecified (principal); R06.09 Other forms of dyspnea; Z87.891 Personal history of nicotine dependence
CPT/HCPCS: 94060; 94727; 94729

== ENCOUNTER → 2024-01-08 | Outpatient (CLI) | payer MEDICARE, MEDICAID ==
[~2024-01-08] MED LIST changes: -ALBUTEROL SULF 2.5 MG/0.5ML(0.5%) NEB SOLN ONE
[2024-01-08 15:41] LABS: Basophils # (auto) 0 10 ^3/uL (0-0.2); Basophils % (auto) 0.7 % (0.0-2.0); Eosinophils # (auto) 0.1 10 ^3/uL (0-0.8); Eosinophils % (auto) 2.4 % (0.0-7.0); Hematocrit 38.2 % (36.0-46.0); Hemoglobin 12.9 g/dL (12.2-16.2); Lymphocytes # (auto) 1.3 10 ^3/uL (0.4-5.4); Lymphocytes % (auto) 22.1 % (10.0-50.0); Mean Corpuscular Hemoglobin 28.4 pg (28.0-32.0); Mean Corpuscular Hgb Conc. 33.8 g/dL (32.0-36.0); Mean Corpuscular Volume 84.1 fL (80.0-100.0); Monocytes # (auto) 0.6 10 ^3/uL (0-1.3); Monocytes % (auto) 9.5 % (0.0-12.0); Neutrophils # (auto) 3.9 10 ^3/uL (1.6-8.6); Neutrophils % (auto) 65.3 % (37.0-80.0); Nucleated Red Blood Cells % 0.1 %; Platelet Count (auto) 221 10^3/uL (140-450); Red Blood Cells 4.54 10^6/uL (4.0-5.20); Red Cell Distribution Width 15.2 % (11.8-14.3)
[2024-01-08 16:44] LABS: Alanine Aminotransferase 19 U/L (7-40); Albumin 4.7 g/dL (3.2-4.8); Alkaline Phosphatase 103 U/L (46-116); Anion Gap 8 (5-15); Blood Urea Nitrogen 11 mg/dL (9-23); Calcium 10.2 mg/dL (8.7-10.4); Carbon Dioxide 26 mmol/L (20-30); Chloride 106 mmol/L (98-107); Glucose 122 mg/dL (74-106); Potassium 4.1 mmol/L (3.5-5.1); Sodium 140 mmol/L (136-145)
[2024-01-08 16:45] LABS: Aspartate Aminotransferase 25 U/L (13-40); Bilirubin, Total 0.6 mg/dL (0.2-1.0); Total Protein 7.2 g/dL (5.7-8.2)
== END | disposition home or self-care (01) ==
LOC: LAB 15:34
PROVIDERS: ATTEND Internal Medicine
DX: C18.7 Malignant neoplasm of sigmoid colon (principal); C50.912 Malignant neoplasm of unspecified site of left female breast; M81.0 Age-related osteoporosis without current pathological fracture
CPT/HCPCS: 36415; 80053; 85025

== ENCOUNTER → 2024-05-13 | Outpatient (CLI) | payer MEDICARE, MEDICAID ==
[2024-05-13 10:41] LABS: Urine Bacteria None Seen /hpf (None Seen)
[2024-05-13 10:52] LABS: Basophils # (auto) 0.1 10 ^3/uL (0-0.2); Basophils % (auto) 0.7 % (0.0-2.0); Eosinophils # (auto) 0.1 10 ^3/uL (0-0.8); Eosinophils % (auto) 1.5 % (0.0-7.0); Hematocrit 39.4 % (36.0-46.0); Hemoglobin 13.2 g/dL (12.2-16.2); Mean Corpuscular Hemoglobin 28.3 pg (28.0-32.0); Mean Corpuscular Hgb Conc. 33.5 g/dL (32.0-36.0); Mean Corpuscular Volume 84.6 fL (80.0-100.0); Monocytes # (auto) 0.7 10 ^3/uL (0-1.3); Monocytes % (auto) 9.3 % (0.0-12.0); Neutrophils # (auto) 5.6 10 ^3/uL (1.6-8.6); Neutrophils % (auto) 75.5 % (37.0-80.0); Platelet Count (auto) 241 10^3/uL (140-450); Red Blood Cells 4.65 10^6/uL (4.0-5.20); White Blood Cell 7.5 10^3/uL (4.4-10.8)
[2024-05-13 11:02] LABS: Urine Blood Negative /uL (Negative); Urine Clarity Clear (Clear); Urine Color Colorless (Yellow); Urine Protein, UAD Negative (Negative); Urine Specific Gravity 1.011 (1.001-1.035); Urine Squamous Epithelial Cell FEW /hpf (<5); Urine Urobilinogen Normal (Negative); Urine WBC 13 /HPF (0-5); Urine pH 6.5 (5.0-9.0)
[2024-05-13 11:31] LABS: Alanine Aminotransferase 22 U/L (7-40); Albumin 4.6 g/dL (3.2-4.8); Alkaline Phosphatase 96 U/L (46-116); Anion Gap 6 (5-15); Aspartate Aminotransferase 23 U/L (13-40); BUN/Creatinine Ratio 11.6 (10.0-20.0); Blood Urea Nitrogen 10 mg/dL (9-23); Calcium 9.3 mg/dL (8.7-10.4); Carbon Dioxide 28 mmol/L (20-31); Glucose 102 mg/dL (74-106); Potassium 4.1 mmol/L (3.5-5.1); Sodium 142 mmol/L (136-145)
[2024-05-13 11:32] LABS: Bilirubin, Total 0.4 mg/dL (0.2-1.0)
[2024-05-13 12:01] LABS: Chloride 108 mmol/L (98-107)
== END | disposition home or self-care (01) ==
LOC: LAB 10:25
PROVIDERS: ATTEND Internal Medicine
DX: E11.22 Type 2 diabetes mellitus with diabetic chronic kidney disease (principal)
CPT/HCPCS: 36415; 80053; 81001; 82043; 83036; 85025

== ENCOUNTER → 2024-06-24 | Outpatient (CLI) | payer MEDICARE, MEDICAID ==
[2024-06-24 13:23] LABS: Hematocrit 40.7 % (36.0-46.0); Hemoglobin 13.6 g/dL (12.2-16.2); Mean Corpuscular Hemoglobin 28.3 pg (28.0-32.0); Mean Corpuscular Hgb Conc. 33.4 g/dL (32.0-36.0); Mean Corpuscular Volume 84.7 fL (80.0-100.0); Platelet Count (auto) 230 10^3/uL (140-450); Red Cell Distribution Width 15.4 % (11.8-14.3); White Blood Cell 5.2 10^3/uL (4.4-10.8)
[2024-06-24 13:28] LABS: Basophils % (manual) 0 (0.0-2.0); Blast Cells 0; Eosinophils % (manual) 0 (0-7); Metamyelocytes % 0; Monocytes % (manual) 0 (0-12); Myelocytes % 0; Promyelocytes % 0; Reactive Lymphocytes 0
[2024-06-24 13:57] LABS: Alanine Aminotransferase 24 U/L (7-40); Albumin 4.7 g/dL (3.2-4.8); Alkaline Phosphatase 96 U/L (46-116); Anion Gap 6 (5-15); Aspartate Aminotransferase 24 U/L (13-40); BUN/Creatinine Ratio 11.3 (10.0-20.0); Blood Urea Nitrogen 11 mg/dL (9-23); Carbon Dioxide 28 mmol/L (20-31); Glucose 88 mg/dL (74-106); Potassium 4.3 mmol/L (3.5-5.1); Sodium 141 mmol/L (136-145); Total Protein 7.2 g/dL (5.7-8.2)
[2024-06-24 13:58] LABS: Bilirubin, Total 0.4 mg/dL (0.2-1.0)
[2024-06-24 14:03] LABS: Chloride 107 mmol/L (98-107)
[2024-06-24 14:39] LABS: Band Neutrophils % (manual) 4; Lymphocytes % (manual) 28 (10.0-50.0)
[2024-06-24 14:40] LABS: Platelet Estimate Adequate
== END | disposition home or self-care (01) ==
LOC: LAB 12:51
PROVIDERS: ATTEND Internal Medicine
DX: C18.7 Malignant neoplasm of sigmoid colon (principal); C50.912 Malignant neoplasm of unspecified site of left female breast; M81.0 Age-related osteoporosis without current pathological fracture
CPT/HCPCS: 36415; 80053; 83615; 85007; 85027

== ENCOUNTER → 2024-09-02 | Outpatient (CLI) | payer MEDICARE, MEDICAID ==
[2024-09-02 11:56] LABS: Basophils # (auto) 0 10 ^3/uL (0-0.2); Basophils % (auto) 0.4 % (0.0-2.0); Eosinophils # (auto) 0.1 10 ^3/uL (0-0.8); Hemoglobin 13.3 g/dL (12.2-16.2); Lymphocytes # (auto) 1.1 10 ^3/uL (0.4-5.4); Lymphocytes % (auto) 18.8 % (10.0-50.0); Mean Corpuscular Hemoglobin 27.9 pg (28.0-32.0); Mean Corpuscular Hgb Conc. 33.4 g/dL (32.0-36.0); Mean Corpuscular Volume 83.6 fL (80.0-100.0); Monocytes # (auto) 0.4 10 ^3/uL (0-1.3); Monocytes % (auto) 7.7 % (0.0-12.0); Neutrophils % (auto) 71.1 % (37.0-80.0); Nucleated Red Blood Cells % 0.1 %; Platelet Count (auto) 223 10^3/uL (140-450); Red Blood Cells 4.78 10^6/uL (4.0-5.20); Red Cell Distribution Width 15.1 % (11.8-14.3); White Blood Cell 5.7 10^3/uL (4.4-10.8)
[2024-09-02 12:05] LABS: Creatinine, Urine 74.81 mg/dL (30.0-125.0)
[2024-09-02 12:09] LABS: Alanine Aminotransferase 23 U/L (7-40); Albumin 4.5 g/dL (3.2-4.8); Alkaline Phosphatase 92 U/L (46-116); Anion Gap 8 (5-15); Carbon Dioxide 28 mmol/L (20-31); Chloride 106 mmol/L (98-107); Potassium 4.3 mmol/L (3.5-5.1); Sodium 142 mmol/L (136-145)
[2024-09-02 12:10] LABS: BUN/Creatinine Ratio 11.9 (10.0-20.0); Blood Urea Nitrogen 10 mg/dL (9-23); Glucose 96 mg/dL (74-106); Triglycerides 124 mg/dL (< 150)
[2024-09-02 12:11] LABS: LDL Cholesterol 95 mg/dL (< 100); Total Protein 7.2 g/dL (5.7-8.2)
[2024-09-02 12:12] LABS: Aspartate Aminotransferase 23 U/L (13-40); Bilirubin, Total 0.5 mg/dL (0.2-1.0); Cholesterol 175 mg/dL (< 200)
[2024-09-02 12:13] LABS: HDL Cholesterol 67 mg/dL (40-59)
== END | disposition home or self-care (01) ==
LOC: LAB 10:59
PROVIDERS: ATTEND Licensed Practical Nurse
DX: E11.9 Type 2 diabetes mellitus without complications (principal); J44.9 Chronic obstructive pulmonary disease, unspecified; E03.9 Hypothyroidism, unspecified; E78.5 Hyperlipidemia, unspecified
CPT/HCPCS: 36415; 80053; 80061; 82043; 82570; 83036; 84439; 84443; 85025

== ENCOUNTER 2024-09-25 12:54 | Emergency (ER) | payer MEDICARE, MEDICAID ==
[~2024-09-25] VITALS: Ht 160 cm; Wt 80.3 kg
[2024-09-25 14:28] LABS: Urine Bacteria None Seen /hpf (None Seen)
[2024-09-25 14:51] LABS: Urine Blood Negative /uL (Negative); Urine Clarity Clear (Clear); Urine Color Light-Yellow (Yellow); Urine Protein, UAD Negative (Negative); Urine Specific Gravity 1.007 (1.001-1.035); Urine Squamous Epithelial Cell FEW /hpf (<5); Urine Urobilinogen Normal (Negative); Urine WBC < 1 /HPF (0-5); Urine pH 6.5 (5.0-9.0)
--- NOTE | 2024-09-25 14:53 | ED.PDOC ---
General HPI Comments 69 year old female presents to the ED with chief complaint of flank pain. Patient reports that she has been experiencing bilateral flank pain with associated nausea for the past 2 weeks. Patient relays that she normally does yard work at home and her pain is different than her usual muscle aches. Patient states she also had some recent diarrhea and abdominal discomfort for the past 2 days, prompting her to come into the ED. patient notes recent blood work a week ago showed a normal GFR level. Patient denies any dysuria, hematuria, abdominal pain, vomiting, fever, or chills. Chief Complaint: Flank Pain Time Seen by MD: 14:52 Primary Care Provider: BASIA Moy notes: Nurses Notes, Medications, Allergies Allergies: Coded Allergies: NO KNOWN ALLERGIES (Unverified , 01/10/20) Home Meds Active Scripts Docusate Sodium (Colace) 100 Mg Cap, 100 MG PO BIDP PRN for 15 Days, #30 CAP Prov:ROSE READ MD 08/30/22 Acetaminophen (Tylenol) 325 Mg Tb, 650 MG PO Q6HPRN PRN for 7 Days, #56 TAB Prov:HANS ADHIKARI MD 08/24/22 Reported Medications Fluticasone-Salmeterol (Advair Diskus 250/50) 1 Puff Ih, 1 PUFF IN BID, INH 03/21/23 Mecobalamin (K83-HWLRLS) 1 Mg Chw, 1 MG PO, TAB.CHEW 12/01/20 Cyanocobalamin (B12) 1,000 Mcg Tab, 1000 MCG PO, TAB 12/01/20 Fish Oil (Fish Oil) 1,200 Mg Cap, 1200 MG PO, CAP 12/01/20 Turmeric (Turmeric Curcumin) Curcumin Cap, 1 OR, CAP 12/01/20 Ascorbic Acid (VITAMIN C TABLET) 500 Mg Tb, 500 MG PO DAILY, TAB 12/01/20 Cholecalciferol (D3) 2,000 Unit Tab, 2000 UNIT PO, TAB 12/01/20 Coenzyme Q10 (Ubidecarenone) (Co Q-10) 200 Mg Cap, 200 MG PO, CAP 12/01/20 Metformin Hydrochloride (Metformin Hcl) 500 Mg Tab, 500 MG PO BID, TAB 12/01/20 Levothyroxine Sodium (Levothyroxine Sodium) 50 Mcg Tab, 50 MCG PO QAM for 30 Days, MCG 10/25/19 Anastrozole (Anastrozole) 1 Mg Tab, 1 TAB PO DAILY, #30 TAB 5 Refills 10/25/19 Albuterol Sulfate (VENTOLIN MDI) 90 Mcg Ih, 180 MCG IN Q6HP PRN for SHORTNESS OF BREATH for 30 Days, MCG 09/21/18 Sertraline Hcl (Sertraline Hcl) 100 Mg Tab, 100 MG PO DAILY, TAB 09/21/18 Atorvastatin Calcium (ATORVASTATIN CALCIUM) 20 Mg Tab, 1 TAB PO DAILY, #30 TAB 5 Refills 09/21/18 Information Source: Patient Mode of Arrival: Ambulatory Severity: Moderate Timing: Weeks Duration: Since onset Prehospital treatment: None Onset: Spontaneous Symptoms: None History of: None Location: (R) Flank, (L)Flank Modifying factors: None associated signs and symptoms: Nausea, Flank Pain Past Medical History PAST MEDICAL HISTORY: Cancer, COPD, DM, High Lipids, Thyroid Surgical History: Cholecystectomy TAKER OFF HEMP FIBER History: No Pertinent TAKER OFF HEMP FIBER History Family History Family History: Unknown Social History Smoker: Non-Smoker Alcohol: Denies ETOH Use Drugs: Denies Drug Use Lives In: Home Constitutional: denies: chills, diaphoresis, fatigue, fever, malaise, sweats, weakness, others EENTM: denies: blurred vision, double vision, ear bleeding, ear discharge, ear drainage, ear pain, ear ringing, eye pain, eye redness, hearing loss, mouth pain, mouth swelling, nasal discharge, nose bleeding, nose congestion, nose pain, photophobia, tearing, throat pain, throat swelling, voice changes, others Respiratory: denies: cough, hemoptysis, orthopnea, SOB at rest, shortness of breath, SOB with excertion, stridor, wheezing, others Cardiovascular: denies: chest pain, dizzy spells, diaphoresis, Dyspnea on exertion, edema, irregular heart beat, left arm pain, lightheadedness, palpitations, PND, syncope, others Gastrointestinal: reports: diarrhea, nausea, others (abdominal discomfort); denies: abdomen distended, abdominal pain, blood streaked bowels, constipated, dysphagia, difficulty swallowing, hematemesis, melena, poor appetite, poor fluid intake, rectal bleeding, rectal pain, vomiting Genitourinary: reports: flank pain; denies: abnormal vagina bleeding, burning, dyspareunia, dysuria, frequency, hematuria, incontinence, pain, , vagina discharge, urgency, others Neurological: denies: dizziness, fainting, headache, left sided numbness, left sided weakness, numbness, paresthesia, pre-existing deficit, right sided numbness, right sided weakness, seizure, speech problems, tingling, tremors, weakness, others Musculoskeletal: denies: back pain, gout, joint pain, joint swelling, muscle pain, muscle stiffness, neck pain, others Integumetry: denies: bruises, change in color, change in hair/nails, dryness, laceration, lesions, lumps, rash, wounds, others Allergic/Immunocompromised: denies: Difficulty Healing, Frequent Infections, Hives, Itching, others Hematologic/Lymphatic: denies: anemia, blood clots, easy bleeding, easy bruising, swollen glands, others Endocrine: denies: excessive hunger, excessive sweating, excessive thirst, excessive urination, flushing, intolerance to cold, intolerance to heat, unexplained weight gain, unexplained weight loss, others Psychiatric: denies: anxiety, bipolar disorder, depression, hopeless, panic disorder, schizophrenia, sleepless, suicidal, others All Other Systems: Reviewed and Negative Physical Exam General Appearance: No Apparent Distress, Obese HEENT: Other (Pupils and face symmetric. Moist mucous membranes.) Neck: Full Range of Motion, Normal Inspection Respiratory: Lungs Clear, No Accessory Muscle Use, No Respiratory Distress, Normal Breath Sounds Cardiovascular: No Edema, No JVD, Regular Rate/Rhythm Breast Exam: Deferred Gastrointestinal: Non Tender, Soft Genitalia: Deferred Pelvic: Deferred Rectal: Deferred Extremities: Normal inspection, Normal range of motion, Non-tender, No pedal edema Neurologic: Alert (Oriented x4), Normal Affect, Normal Mood, Other (Ambulatory) Cerebellar Function: NOT DONE Reflexes: NOT DONE Skin: Dry, Normal Color, Warm Lymphatic: NOT DONE Was a procedure done? Was a procedure done?: No Differential Diagnosis Kidney stone (Female): AAA, Aortic dissection, Bowel obstruction, DJD, Musculoskeletal pain, Pyelonephritis, Renal failure, Strain, Urolithiasis Kidney stone (Male): N/A Penile/Scrotal: N/A Urinary Problem (Male): N/A Urinary Problem (Female): Impaction, Other (Disc herniation, among others) X-Ray, Labs, Meds, VS Vital Signs Date Time Temp Pulse Resp B/P (MAP) Pulse Ox O2 Delivery O2 Flow Rate FiO2 09/25/24 16:59 98.2 52 20 140/68 (92) 94 98.2 09/25/24 16:58 52 20 140/68 09/25/24 15:34 54 16 158/78 09/25/24 15:10 98.0 54 16 158/78 (104) 99 98.0 09/25/24 15:10 54 16 99 Room Air* 0 21 09/25/24 13:19 98.4 61 18 161/63 (95) 96 98.4 Lab Test 09/25/24 15:00 09/25/24 13:15 Range/Units White Blood Count 7.0 4.4-10.8 10^3/uL Red Blood Count 4.67 4.0-5.20 10^6/uL Hemoglobin 13.1 12.2-16.2 g/dL Hematocrit 39.9 36.0-46.0 % Mean Corpuscular Volume 85.5 80.0-100.0 fL Mean Corpuscular Hemoglobin 28.1 28.0-32.0 pg Mean Corpuscular Hemoglobin Concent 32.9 32.0-36.0 g/dL Red Cell Distribution Width 15.2 H 11.8-14.3 % Platelet Count 208 140-450 10^3/uL Mean Platelet Volume 7.8 6.9-10.8 fL Neutrophils (%) (Auto) 75.1 37.0-80.0 % Lymphocytes (%) (Auto) 17.5 10.0-50.0 % Monocytes (%) (Auto) 5.8 0.0-12.0 % Eosinophils (%) (Auto) 1.3 0.0-7.0 % Basophils (%) (Auto) 0.3 0.0-2.0 % Neutrophils # (Auto) 5.3 1.6-8.6 10 ^3/uL Lymphocytes # (Auto) 1.2 0.4-5.4 10 ^3/uL Monocytes # (Auto) 0.4 0-1.3 10 ^3/uL Eosinophils # (Auto) 0.1 0-0.8 10 ^3/uL Basophils # (Auto) 0 0-0.2 10 ^3/uL Nucleated Red Blood Cells 0.1 % Sodium Level 144 136-145 mmol/L Potassium Level 4.1 3.5-5.1 mmol/L Chloride Level 108 H 98-107 mmol/L Carbon Dioxide Level 26 20-31 mmol/L Anion Gap 10 5-15 Blood Urea Nitrogen 11 9-23 mg/dL Creatinine 0.87 0.550-1.02 mg/dL Glomerular Filtration Rate Calc 71 >90 mL/min BUN/Creatinine Ratio 12.6 10.0-20.0 Serum Glucose 98 74-106 mg/dL Lactic Acid Level 0.7 0.4-2.0 mmol/L Calcium Level 9.8 8.7-10.4 mg/dL Total Bilirubin 0.4 0.2-1.0 mg/dL Aspartate Amino Transferase (AST) 27 13-40 U/L Alanine Aminotransferase (ALT) 25 7-40 U/L Alkaline Phosphatase 85 46-116 U/L Total Protein 6.8 5.7-8.2 g/dL Albumin 4.6 3.2-4.8 g/dL Urine Color Light-yellow Yellow Urine Clarity Clear Clear Urine pH 6.5 5.0-9.0 Urine Specific [place] 1.007 1.001-1.035 Urine Protein Negative Negative Urine Ketones Negative Negative Urine Blood Negative Negative /uL Urine Nitrite Negative Negative Urine Bilirubin Negative Negative Urine Urobilinogen Normal Negative mg/dL Urine Leukocyte Esterase Negative Negative /uL Urine RBC 2 0 - 4 /hpf Urine Microscopic WBC < 1 0-5 /HPF Urine Squamous Epithelial Cells Few <5 /hpf Urine Bacteria None seen None Seen /hpf Urine Glucose Normal Normal mg/dL Current Medications Medications (Trade) Dose Ordered Sig/Genna Route Start Time Stop Time Status Last Admin Sodium Chloride 2,000 ml @ 1,000 mls/hr Q2H ONCE IV 09/25/24 14:45 09/25/24 16:44 DC 09/25/24 15:35 Ondansetron HCl (Zofran) 4 mg ONCE ONCE IV 09/25/24 14:45 09/25/24 14:46 DC 09/25/24 15:34 Morphine Sulfate 4 mg ONCE ONCE IV 09/25/24 14:45 09/25/24 14:46 DC 09/25/24 15:34 PROCEDURE(s): ABPL - CT AB PEL WO CON-NO ORAL OR IV REASON: R>L flank pain, n/v/d ORDER NUMBER(s): [id number], ACCESSION NUMBER(s): [id number] CT CT AB PEL WO CON-NO ORAL OR IV INDICATION: R>L flank pain, n/v/d EXAM DATE: 09/25/2024 02:34 PM COMPARISON: None RADIATION DOSE: CTDIvol: 14.92 mGy, DLP: 681.54 mGy*cm PROCEDURE: Helical CT images were obtained of the abdomen and pelvis without IV contrast Sagittal and coronal reconstructions are provided. ORAL CONTRAST: None. ADDITIONAL IMAGES / REFORMATS: None All CT scans at this medical facility are performed using dose modulation techniques as appropriate to a performed exam including the following: Automated exposure control was utilized; adjustment of the MA and/or KV according to patient size; and use of iterative reconstruction technique. FINDINGS: LUNG BASE: Normal. LIVER: Normal. GALLBLADDER AND BILIARY TREE: Cholecystectomy clips are seen. No intra- or extrahepatic biliary ductal dilation. PANCREAS: Normal. SPLEEN: Normal. BOWEL: Normal. The appendix appears normal. ADRENALS: There is a 3.7 cm left adrenal nodule most likely an adenoma versus a stomach diverticulum. KIDNEYS AND URETER: Normal. BLADDER: Normal. REPRODUCTIVE ORGANS: Normal. LYMPH NODES:No lymphadenopathy. PERITONEUM: No ascites or free air. No other fluid collection. VESSELS: Scattered atherosclerotic calcifications are noted. RETROPERITONEUM: Normal. ABDOMINAL WALL: There is a fat containing ventral abdominal wall hernia. BONES: Scattered osseous degenerative changes are noted. IMPRESSION: No acute intraabdominal abnormality. Normal appendix. 3.7 cm left adrenal nodule most likely an adenoma versus a stomach diverticulum. X-Ray, Labs, Meds, VS Comment 79-year-old female with a history of COPD, dyslipidemia, hypertension, diabetes and breast cancer in remission complaining of severe back pain outside of her normal chronic pain Vitals remarkable for BP 161/63 Exam unremarkable Rhythm strip independently interpreted by me: Sinus rhythm, rate 81, no ectopy. CT abdomen and pelvis IMPRESSION: No acute intraabdominal abnormality. Normal appendix. 3.7 cm left adrenal nodule most likely an adenoma versus a stomach diverticulum. CBC, metabolic panel, UA and lactic unremarkable Patient treated with the following in the ED: 1 L 0.9 normal saline IV bolus, morphine 4 mg IV, Zofran 4 mg IV On re-evaluation, patient states pain has somewhat improved. Vitals are stable. Plan is to admit the patient for spine MRI and pain control. Time of 1ST Reevaluation: 15:52 Reevaluation 1ST: Unchanged Patient Education/Counseling: Diagnosis, Treatment Family Education/Counseling: No Family Present Sepsis Sepsis Reasesment Focused Exam Orders: Laboratory Tests 09/25/24 15:00: Lactic Acid Level 0.7 Departure 1 Departure Time of Disposition: 17:13 Impression: Primary Impression: Intractable back pain Disposition: 09 ADMITTED INPATIENT Admit to: Med Surg Condition: Fair Critical Care Note Critical Care Time?: No Stability Stability form required: No Heart Score Heart Score: Heart Score Response (Comments) Value History N/A 0 EKG N/A 0 Age N/A 0 Risk Factors N/A 0 Troponin N/A 0 Total 0 I personally scribed for RAUL MIRELES MD ([email or web address]) on 09/25/24 at 14:53. Electronically submitted by Cecil Wilde ([email or web address]). RAUL MIRELES MD Sep 25, 2024 14:53
[2024-09-25 15:10] VITALS: PULSE 54; RESP 16; O2SAT 99
--- NOTE | 2024-09-25 15:16 | DVH ---
CT CT AB PEL WO CON-NO ORAL OR IV INDICATION: R>L flank pain, n/v/d EXAM DATE: 09/25/2024 02:34 PM COMPARISON: None RADIATION DOSE: CTDIvol: 14.92 mGy, DLP: 681.54 mGy*cm PROCEDURE: Helical CT images were obtained of the abdomen and pelvis without IV contrast Sagittal and coronal reconstructions are provided. ORAL CONTRAST: None. ADDITIONAL IMAGES / REFORMATS: None All C T scans at this medical facility are performed using dose modulation techniques as appropriate to a p erformed exam including the following: Automated exposure control was utilized; adjustment of the MA and/or KV according to patient size; and use of iterative reconstruction technique. FINDINGS: LUNG BASE: Normal. LIVER: Normal. GALLBLADDER AND BILIARY TREE: Cholecystectomy clips are seen. No intra- or extrahepatic biliary ducta l dilation. PANCREAS: Normal. SPLEEN: Normal. BOWEL: Normal. The appendix appears normal. ADRENALS: There is a 3.7 cm left adrenal nodule most likely an adenoma versus a stomach diverticulum. KIDNEYS AND URETER: Normal. BLADDER: Normal. REPRODUCTIVE ORGANS: Normal. LYMPH NODES:No lymphadenopathy. PERITONEUM: No ascites or free air. No other fluid collection. VESSELS: Scattered atherosclerotic calcifications are noted. RETROPERITONEUM: Normal. ABDOMINAL WALL: There is a fat containing ventral abdominal wall hernia. BONES: Scattered osseous degenerative changes are noted. IMPRESSION: No acute intraabdominal abnormality. Normal appendix. 3.7 cm left adrenal nodule most likely an adenoma versus a stomach diverticulum.
[2024-09-25 15:22] LABS: Basophils # (auto) 0 10 ^3/uL (0-0.2); Basophils % (auto) 0.3 % (0.0-2.0); Eosinophils # (auto) 0.1 10 ^3/uL (0-0.8); Eosinophils % (auto) 1.3 % (0.0-7.0); Hematocrit 39.9 % (36.0-46.0); Hemoglobin 13.1 g/dL (12.2-16.2); Lymphocytes # (auto) 1.2 10 ^3/uL (0.4-5.4); Lymphocytes % (auto) 17.5 % (10.0-50.0); Mean Corpuscular Hemoglobin 28.1 pg (28.0-32.0); Mean Corpuscular Hgb Conc. 32.9 g/dL (32.0-36.0); Mean Corpuscular Volume 85.5 fL (80.0-100.0); Monocytes # (auto) 0.4 10 ^3/uL (0-1.3); Monocytes % (auto) 5.8 % (0.0-12.0); Neutrophils # (auto) 5.3 10 ^3/uL (1.6-8.6); Neutrophils % (auto) 75.1 % (37.0-80.0); Nucleated Red Blood Cells % 0.1 %; Platelet Count (auto) 208 10^3/uL (140-450); Red Blood Cells 4.67 10^6/uL (4.0-5.20); Red Cell Distribution Width 15.2 % (11.8-14.3)
[2024-09-25] MEDS: MORPHINE SULFATE 4 MG/ML SYR/VIAL IV ONE (15:34)
[2024-09-25] MEDS: ONDANSETRON HCL 4 MG/2 ML VIAL IV ONE (15:34)
[2024-09-25] MEDS: SODIUM CHLORIDE 0.9% 2,000 ML IV ONE (15:35)
[2024-09-25 15:54] LABS: Alanine Aminotransferase 25 U/L (7-40); Albumin 4.6 g/dL (3.2-4.8); Alkaline Phosphatase 85 U/L (46-116); Anion Gap 10 (5-15); Aspartate Aminotransferase 27 U/L (13-40); BUN/Creatinine Ratio 12.6 (10.0-20.0); Bilirubin, Total 0.4 mg/dL (0.2-1.0); Blood Urea Nitrogen 11 mg/dL (9-23); Calcium 9.8 mg/dL (8.7-10.4); Carbon Dioxide 26 mmol/L (20-31); Glucose 98 mg/dL (74-106); Potassium 4.1 mmol/L (3.5-5.1); Sodium 144 mmol/L (136-145); Total Protein 6.8 g/dL (5.7-8.2)
[2024-09-25 16:04] LABS: Chloride 108 mmol/L (98-107)
[2024-09-25 19:59] VITALS: BP 150/79; PULSE 68; RESP 20; TEMP 97.6; O2SAT 98
[2024-09-25] MEDS ORDERED: ONDANSETRON HCL 4 MG/2 ML VIAL IV PRN (20:00)
[2024-09-25] MEDS ORDERED: HYDROcodone-ACET 5/325MG TAB PO PRN (20:00)
[2024-09-25] MEDS ORDERED: DEXTROSE (50%) 50ML SYRG IV PRN (20:00)
[2024-09-25] MEDS ORDERED: DOCUSATE SOD 100 MG CAP PO PRN (20:00)
[2024-09-25] MEDS ORDERED: ACETAMINOPHEN 325 MG TAB PO PRN (20:00)
[2024-09-25] MEDS ORDERED: SODIUM CHLOR 0.9% PF (SALINE LOCK) 10ML VIAL/SYR IV SCH (22:00)
[2024-09-25] MEDS ORDERED: ACCU-CHEK COMFORT CURVE STRIP VI SCH (22:00)
[2024-09-25] MEDS ORDERED: ATORVASTATIN 20 MG TAB PO SCH (22:00)
[2024-09-25] MEDS ORDERED: InsuLIN REG 1unit/0.01ml Soln (100units/ml) SC SCH (22:00)
[2024-09-26] MEDS ORDERED: LEVOTHYROXINE SODIUM 50 MCG TAB PO SCH (06:00)
[2024-09-26] MEDS ORDERED: CYANOCOBALAMIN 500 MCG TAB PO SCH (10:00)
[2024-09-26] MEDS ORDERED: SERTRALINE HCL 50 MG TAB PO SCH (10:00)
== END 2024-09-25 21:36 | disposition left against medical advice (07) ==
LOC: ER 12:54
DX: M54.9 Dorsalgia, unspecified (principal); R10.9 Unspecified abdominal pain; E11.9 Type 2 diabetes mellitus without complications; J44.9 Chronic obstructive pulmonary disease, unspecified; E78.5 Hyperlipidemia, unspecified; Z85.9 Personal history of malignant neoplasm, unspecified; Z90.49 Acquired absence of other specified parts of digestive tract; Z79.51 Long term (current) use of inhaled steroids; Z79.811 Long term (current) use of aromatase inhibitors; Z79.84 Long term (current) use of oral hypoglycemic drugs; Z79.899 Other long term (current) drug therapy
CPT/HCPCS: 36415; 74176; 80053; 81001; 83605; 84443; 85025; 87040; 96361; 96374; 96375; 99285; J2270; J2405; J7030

== ENCOUNTER 2024-09-28 11:22 | Outpatient (CLI) | payer MEDICARE, MEDICAID ==
[2024-09-28 11:50] LABS: Basophils # (auto) 0 10 ^3/uL (0-0.2); Basophils % (auto) 0.8 % (0.0-2.0); Eosinophils # (auto) 0.1 10 ^3/uL (0-0.8); Eosinophils % (auto) 2.9 % (0.0-7.0); Hematocrit 39.7 % (36.0-46.0); Hemoglobin 13.5 g/dL (12.2-16.2); Lymphocytes # (auto) 1.1 10 ^3/uL (0.4-5.4); Lymphocytes % (auto) 21.7 % (10.0-50.0); Mean Corpuscular Hemoglobin 28.2 pg (28.0-32.0); Mean Corpuscular Hgb Conc. 33.9 g/dL (32.0-36.0); Monocytes # (auto) 0.4 10 ^3/uL (0-1.3); Neutrophils # (auto) 3.4 10 ^3/uL (1.6-8.6); Neutrophils % (auto) 66.6 % (37.0-80.0); Nucleated Red Blood Cells % 0.1 %; Platelet Count (auto) 212 10^3/uL (140-450); Red Blood Cells 4.78 10^6/uL (4.0-5.20); Red Cell Distribution Width 14.8 % (11.8-14.3); White Blood Cell 5.2 10^3/uL (4.4-10.8)
[2024-09-28 12:13] LABS: Alanine Aminotransferase 24 U/L (7-40); Albumin 4.6 g/dL (3.2-4.8); Alkaline Phosphatase 86 U/L (46-116); Anion Gap 10 (5-15); Aspartate Aminotransferase 22 U/L (13-40); BUN/Creatinine Ratio 10.9 (10.0-20.0); Bilirubin, Total 0.5 mg/dL (0.2-1.0); Blood Urea Nitrogen 10 mg/dL (9-23); Calcium 10.1 mg/dL (8.7-10.4); Carbon Dioxide 27 mmol/L (20-31); Glucose 82 mg/dL (74-106); Sodium 145 mmol/L (136-145); Total Protein 7.1 g/dL (5.7-8.2)
[2024-09-28 12:14] LABS: Chloride 108 mmol/L (98-107)
[2024-09-28 12:21] LABS: % Iron Saturation 16.1 % (15-50)
[2024-09-28 12:22] LABS: Thyroid Stimulating Hormone 5.47 uIU/mL (0.55-4.78)
[2024-09-28 12:33] LABS: Folate (Folic Acid) 39.66 ng/mL (>5.38)
== END 2024-09-28 17:00 | disposition home or self-care (01) ==
LOC: LAB 11:22
PROVIDERS: ATTEND Internal Medicine
DX: C50.912 Malignant neoplasm of unspecified site of left female breast (principal); C18.7 Malignant neoplasm of sigmoid colon; M85.80 Other specified disorders of bone density and structure, unspecified site; Z79.811 Long term (current) use of aromatase inhibitors; Z79.899 Other long term (current) drug therapy
CPT/HCPCS: 36415; 80053; 82607; 82746; 83540; 83550; 83615; 84443; 85025; 86300

== ENCOUNTER 2024-10-26 10:50 | Outpatient (CLI) | payer MEDICARE, MEDICAID ==
[2024-10-26] MEDS ORDERED: ALBUTEROL SULF 2.5 MG/0.5ML(0.5%) NEB SOLN ONE (11:03)
== END 2024-10-26 17:46 | disposition home or self-care (01) ==
LOC: RT 10:50
PROVIDERS: ATTEND Internal Medicine Pulmonary Disease
DX: J44.9 Chronic obstructive pulmonary disease, unspecified (principal); R06.00 Dyspnea, unspecified
CPT/HCPCS: 94060; 94727; 94729

== ENCOUNTER 2024-12-13 10:54 | Outpatient (CLI) | payer MEDICARE, MEDICAID ==
[2024-12-13 11:46] LABS: Hematocrit 40.8 % (36.0-46.0); Hemoglobin 13.5 g/dL (12.2-16.2); Mean Corpuscular Hemoglobin 28.1 pg (28.0-32.0); Mean Corpuscular Volume 85.2 fL (80.0-100.0); Nucleated Red Blood Cells % 0.1 %
[2024-12-13 12:38] LABS: Alanine Aminotransferase 24 U/L (7-40); Albumin 4.5 g/dL (3.2-4.8); Alkaline Phosphatase 71 U/L (46-116); Anion Gap 9 (5-15); BUN/Creatinine Ratio 6.8 (10.0-20.0); Calcium 9.7 mg/dL (8.7-10.4); Carbon Dioxide 27 mmol/L (20-31); Potassium 4.0 mmol/L (3.5-5.1); Sodium 144 mmol/L (136-145); Total Protein 6.6 g/dL (5.7-8.2)
[2024-12-13 12:39] LABS: Bilirubin, Total 0.6 mg/dL (0.2-1.0)
[2024-12-13 12:44] LABS: Blood Urea Nitrogen 6 mg/dL (9-23); Chloride 108 mmol/L (98-107); Glucose 117 mg/dL (74-106)
== END 2024-12-13 17:00 | disposition home or self-care (01) ==
LOC: LAB 10:54
PROVIDERS: ATTEND Internal Medicine
DX: C50.912 Malignant neoplasm of unspecified site of left female breast (principal); C18.7 Malignant neoplasm of sigmoid colon; M85.80 Other specified disorders of bone density and structure, unspecified site; Z85.3 Personal history of malignant neoplasm of breast; Z92.21 Personal history of antineoplastic chemotherapy; Z79.811 Long term (current) use of aromatase inhibitors
CPT/HCPCS: 36415; 80053; 82306; 85025; 86300

== ENCOUNTER → 2025-02-03 | Outpatient (CLI) | payer MEDICARE, MEDICAID ==
[2025-02-03 13:17] LABS: Free T3 2.97 pg/mL (2.3-4.2); Free T4 (Free Thyroxine) 1.1 ng/dL (0.89-1.76)
== END | disposition home or self-care (01) ==
LOC: LAB 11:46
PROVIDERS: ATTEND Internal Medicine
DX: E11.22 Type 2 diabetes mellitus with diabetic chronic kidney disease (principal); N18.9 Chronic kidney disease, unspecified
CPT/HCPCS: 36415; 83036; 84439; 84443; 84481